=== PATIENT | male | born 1950 | race Caucasian/White ===

== ENCOUNTER 2024-01-25 15:05 | Inpatient (IN) | payer OTHER, SELFPAY ==
[2024-01-25 10:11] VITALS: BP 117/64
--- NOTE | 2024-01-25 11:14 | ED.GENMED ---
History of Present Illness
General
Chief Complaint: Skin Problem
Source: patient
Exam Limitations: none
Time Seen by Provider: 01/25/24 10:44
Travel History
Have you had any contact with someone who has COVID-19?: No
Do you have any symptoms of coronavirus? Fever > 100 degrees, chills, cough, shortness of breath, sore throat, loss of taste or smell, muscle aches, or headache?: No
History of Present Illness
History of Present Illness:
73-year-old male [id number] diabetic with history of peripheral arterial disease on Xarelto presents with worsening redness and swelling with pain to the left foot. He was seen by the manager inventory control last week and had 2 ingrown toenails
excised. He has been on For a total of 3 and half days 3 times a day. He denies fever. He denies chest pain or shortness of breath. He notes increased swelling redness and pain to the left foot and christiansen. No other complaints at this time
Phy Exam
Physical Exam
Physical Exam:
General: Well-appearing male no acute respiratory distress
HEENT: Normocephalic atraumatic neck is supple
Heart: Regular rate and rhythm no murmurs
Lungs: Clear to auscultation bilaterally no wheezing
Abdomen: Soft nontender nondistended no guarding or rebound normal bowel sounds
Skin: Erythema with excessive warmth noted from the dorsal left foot and distal left christiansen. This is slightly tender to the touch. The lateral edge of the large toenail has been recently excised. The medial edge of the left middle toenail has been
excised.
Vascular: Very faint dopplerable pulse to the dorsal aspect of the left foot the left foot is warm to
Course
Orders/Labs/Results
Orders:
Orders
01/25/24 11:06
CR Foot - Left Min 3 Views Urgent
Comment:
Reason For Exam: infection
01/25/24 12:12
Complete Blood Count/With Diff Urgent
Comprehensive Metabolic Panel Urgent
Lactic Acid Q4H
Comment: CANCEL 2nd LACTIC ACID IF 1st LACTIC ACID IS LESS THAN 2
Blood Culture Q30M
RAMON Source: Blood/Venous
Specimen Description:
Blood Culture Q30M
RAMON Source: Blood/Venous
Specimen Description:
01/25/24 12:21
Vancomycin [Vancocin] 1,500 mg 0.9% Sodium Chloride [Nss] 20 ml 0.9% Sodium Chloride 250 ml [Nss] 250 ml IV NOW
01/25/24 15:15
Lactic Acid Q4H
Comment: CANCEL 2nd LACTIC ACID IF 1st LACTIC ACID IS LESS THAN 2
Abnormal Lab Results
01/25/24
12:12
RBC 4.25 L 10^6/uL
(4.70-6.10)
Hgb 12.8 L g/dL
(13.0-18.0)
MCHC 32.6 L g/dL
(33.0-37.0)
RDW 15.8 H %
(11.5-14.5)
Immature Gran % 0.6 H %
(0-0.5)
Lymphocytes % 20.3 L %
(20.5-51.1)
BUN 25 H mg/dl
(9-20)
Glucose 141 H mg/dl
(70-99)
ALT 66 H U/L
(0-50)
01/25/24 12:12
01/25/24 12:12
Vital Signs
Initial and Last Documented VS:
Initial Vital Signs
Temp Pulse Resp BP Pulse Ox
98.1 F 94 18 117/64 96
01/25/24 10:11 01/25/24 10:11 01/25/24 10:11 01/25/24 10:11 01/25/24 10:11
Last Documented Vital Signs
Temp Pulse Resp BP Pulse Ox
98.1 F 94 18 117/64 96
01/25/24 10:11 01/25/24 10:11 01/25/24 10:11 01/25/24 10:11 01/25/24 10:11
MDM/Problems Addressed
Differential Diagnosis Includes:
Male with worsening redness and swelling to the left foot. Other medical conditions affecting today's care include diabetic state as well as peripheral arterial disease. Suspect minimally cellulitis. Will check x-ray to evaluate for
osteomyelitis. Patient feeling outpatient treatment with Keflex. Given risk factors he would require admission to hospital. Vancomycin ordered.
*Critical Care Note
Total Time (30-74mins, 75-104mins- exclusive of procedures): Not Applicable
Update Note
Update Note:
X-ray without acute findings. Will admit for cellulitis. Vancomycin ordered
ED Attending Note
-
Portions of this chart may have been created with voice recognition software.� Occasional wrong word or��sound alike� substitutions may have occurred due to the inherent limitations of voice recognition software.
Discharge Plan
Departure
Patient Disposition: Admit
Date of Disposition: 01/25/24
Time of Disposition: 14:02
Admit to: Med/Surg
Presentation/result/management discussed w/ accepting MD/DO: Hospitalist
Discharge Problem:
Cellulitis
Prescriptions:
No Action
atorvastatin 40 mg Tablet
40 mg PO DAILY
lisinopril 20 mg Tablet
20 mg PO DAILY
Hold Instructions: Resume on 05/30/23. Resume only after discussing with your primary care provider
metoprolol succinate 25 mg Tablet Extended Release 24 Hr
25 mg PO DAILY
Januvia 100 mg Tablet
100 mg PO DAILY
Jardiance 25 mg Tablet
25 mg PO DAILY
glipizide 5 mg Tablet
5 mg PO BID
isosorbide mononitrate 30 mg Tablet Extended Release 24 Hr
30 mg PO DAILY
aspirin 81 mg Tablet,Delayed Release (Dr/Ec)
81 mg PO DAILY
acetaminophen [Tylenol Extra Strength] 500 mg Tablet
1,000 mg PO Q6H PRN (Reason: mild pain)
cephalexin 500 mg Capsule
500 mg PO TID
Patient Comments:
01/25/2024, pt. filled this med. on 01/21/2024 and is instructed to take one capsule TID for 7 days. Pt.'s first dose was night (01/21/2024).
metformin 1,000 mg Tablet
1,000 mg PO BID
colchicine 0.6 mg Tablet
0.6 mg PO BID
Xarelto 20 mg Tablet
20 mg PO HS
Referrals:
Kim Greene PA [Family Provider] -
Interventions
Interventions:
*Risk Screen - Suicide Last Done: 01/25/24 11:58
*General Assessment Last Done: 01/25/24 11:58
*Neglect/Abuse Screening Last Done: 01/25/24 11:58
ED- Fall Risk Assessment Last Done: 01/25/24 11:58
*ED COVID-19 Vaccine History Last Done: 01/25/24 10:11
ED-Skin Assessment Last Done: 01/25/24 11:58
[2024-01-25 11:58] VITALS: BMI 32.7
[2024-01-25 12:35] LABS: % Eosinophils 3.4 % (0-6); % Immature Granulocytes 0.6 % (0-0.5); % Lymphocytes 20.3 % (20.5-51.1); % Monocytes 7.5 % (1.7-9.3); % Neutrophils 67.2 % (42.2-75.2); Absolute Basophils 0.1 10^3/uL (0-0.2); Absolute Eosinophils 0.2 10^3/uL (0-0.7); Absolute Lymphocytes 1.4 10^3/uL (1.2-3.4); Absolute Monocytes 0.5 10^3/uL (0.1-0.6); Absolute Neutrophils 4.5 10^3/uL (1.4-6.5); Hematocrit 39.3 % (39.0-52.0); Hemoglobin 12.8 g/dL (13.0-18.0); Mean Corp Hgb Conc. 32.6 g/dL (33.0-37.0); Mean Corpuscular Hgb 30.1 pg (27.0-31.0); Mean Corpuscular Volume 92.5 fL (80.0-94.0); Mean Platelet Volume 9.9 fL (7.4-10.4); Nucleated Red Blood Cells % 0 % (-); Platelet Count 244 10^3/uL (130-400); Red Blood Cell Count 4.25 10^6/uL (4.70-6.10); Red Cell Dist. Width 15.8 % (11.5-14.5); White Blood Cell Count 6.7 10^3/uL (4.8-10.8)
[2024-01-25 12:43] LABS: ALT (SGPT) 66 U/L (0-50); AST (SGOT) 48 U/L (17-59); Albumin 4.6 g/dl (3.5-5.0); Alkaline Phosphatase 71 U/L (38-126); Blood Urea Nitrogen 25 mg/dl (9-20); Calcium 9.4 mg/dl (8.4-10.2); Carbon Dioxide 27 mmol/L (22-30); Chloride 98 mmol/L (98-107); Estimated Creatinine Clearance 71 ml/min; Glucose 141 mg/dl (70-99); Potassium 4.5 mmol/L (3.5-5.1); Sodium 137 mmol/L (135-145); Total Bilirubin 0.6 mg/dl (0.2-1.3); Total Protein 7.8 g/dl (6.3-8.2); eGFR > 60.00
[2024-01-25] MEDS: VANCOCIN 300 MG IV (13:00)
[2024-01-25] MEDS: VANCOCIN 300 ML IV (13:00)
[2024-01-25 13:08] LABS: Lactic Acid 1.2 mmol/L (0.7-2.0)
--- NOTE | 2024-01-25 14:58 | HPS.HSE ---
Addendum entered and electronically signed by Slade Brown MD 01/25/24 15:55:
I saw and examined the patient.
The DISTRICT SUPERINTENDENT or PA's note was reviewed and I agree with the note.
Comment:
Patient 73 years old male with history of peripheral vascular disease, diabetes mellitus type 2, gout, CAD, hypertension, hyperlipidemia, presented to the hospital worsening erythema on his left foot for several days. Patient had ingrown toenails
and last panel cutter excised the area and he was placed on oral Keflex twice a day and colchicine. Patient foot has progressively getting worse with more erythema, tenderness, and warmth. No fluctuance or purulent discharge. No fevers or
chills. No chest pain or shortness of breath. In the ED, afebrile hemodynamically stable. WBC 6.7, lactate 1.2. He tells me he is seeing his vascular surgeon Dr. Rodriguez as outpatient and they are considering doing more vascular studies over the next
couple weeks to assess patency on his left lower extremity procedures. He was referred to hospitalist for further evaluation.
Physical exam:
General: Acutely ill
HEENT: Normocephalic, Atraumatic and Moist Mucous Membranes
Respiratory: Clear to Auscultation; Negative Wheezes, Rales or Rhonchi
Cardiac: Regular Rhythm and S1/S2
GI: Soft, Nontender and Nondistended
Musculoskeletal: Left foot dorsum erythema along with second and third toes with edema warmth and tenderness. Pedal pulses palpable. No Clubbing, No Cyanosis
Neuro: Awake, Alert and Oriented
Psych: Calm
A/P:
Left diabetic foot cellulitis in the setting of peripheral vascular disease--> IV antibiotics IV cefazolin, elevate lower extremity, monitor vascular status closely, follow-up cultures. Needs tighter blood sugar control. If worsening might
consider vascular evaluation and or changing antibiotics around. Will give further commendationsbased on his clinical course.
Original Note:
Family Physician
-
Family Physician: Kim Greene
Chief Complaint
-
Erythema left foot
History of Present Illness
Patient is a 73 y/o male with PMH of PAD, type II diabetes mellitus, and gout who presents with pain and swelling of the left foot. Patient saw his panel cutter this past who noticed that two of the patient's toes were infected. The
panel cutter corrected ingrown toenails of first and third left toes, prescribed Keflex, and told the patient to present to the ED if the redness from the infection continued to spread. Patient denies recent fever, chills, and sweats.
Medical History
Past Medical History
Past Medical History: Reports Other
Additional Past Medical History:
Coronary Artery Disease
Peripheral Arterial Disease
Diabetes Mellitus, Type II
Diabetic Neuropathy
Essential Hypertension
Hyperlipidemia
Gout
Past Surgical History: Reports Other
Additional Past Surgical History:
Left Superficial Femoral Artery to Anterior Tibial Artery Bypass
Left Lower Extremity Angioplasty
Coronary Artery Bypass Graft
AAA Repair
Left Shoulder Rotator Cuff Repair
Social History
Tobacco: Former Smoker (Quit 5 years ago)
Alcohol: Occasional (Admits to prior heavy alcohol use)
Family History
Family History: Not pertinent
Allergies / Home Medications
Allergies reflects when Allergies were last updated in [facility].
Home Medications with original date entered in [facility]
Allergy/Medication List:
Allergies
Allergy/AdvReac Type Severity Reaction Status Date / Time
No Known Allergies Allergy Verified 01/25/24 10:15
Home Medications
atorvastatin 40 mg tablet 40 mg PO DAILY High cholesterol 03/12/23
empagliflozin 25 mg tablet (Jardiance) 25 mg PO DAILY Diabetes 03/12/23
lisinopril 20 mg tablet 20 mg PO DAILY Blood pressure 03/12/23
metoprolol succinate 25 mg tablet,extended release 24 hr 25 mg PO DAILY Blood pressure 03/12/23
sitagliptin phosphate 100 mg tablet (Januvia) 100 mg PO DAILY Diabetes 03/12/23
glipizide 5 mg tablet 5 mg PO BID 09/09/23
acetaminophen 500 mg tablet (Tylenol Extra Strength) 1,000 mg PO Q6H PRN mild pain 01/25/24
aspirin 81 mg tablet,delayed release 81 mg PO DAILY 01/25/24
cephalexin 500 mg capsule 500 mg PO TID 01/25/24
colchicine 0.6 mg tablet 0.6 mg PO BID 01/25/24
isosorbide mononitrate 30 mg tablet,extended release 24 hr 30 mg PO DAILY 01/25/24
metformin 1,000 mg tablet 1,000 mg PO BID 01/25/24
rivaroxaban 20 mg tablet (Xarelto) 20 mg PO HS 01/25/24
Review of Systems
-
A 12 point ROS was completed and negative except as noted: Yes
Constitutional: Denies Fever or Chills
Skin: Reports See HPI
Physical Exam
Vital Signs
Vital Signs
Temp Pulse Resp BP Pulse Ox
98.1 F 94 18 117/64 96
01/25/24 10:11 01/25/24 10:11 01/25/24 10:11 01/25/24 10:11 01/25/24 10:11
Physical Exam
General: Comfortable and Conversant
HEENT: Anicteric and Moist mucous membranes
Respiratory: Clear and Non Labored Respirations
Cardiac: S1/S2, Regular Rhythm and Other (Intact pedal pulse)
GI: Soft, Non Tender and Other (Protuberant)
Rectal: Deferred by Provider
Musculoskeletal: No Clubbing and No Cyanosis
Skin: Other (Mild erythema left foot)
Neuro: Awake, Alert, Oriented and Nonfocal/grossly intact
Psych: Calm
Laboratory Results
-
01/25/24 12:12
01/25/24 12:12
Laboratory Results
Lactic Acid 1.2 mmol/L (0.7-2.0) 01/25/24 12:12
Total Bilirubin 0.6 mg/dl (0.2-1.3) 01/25/24 12:12
AST 48 U/L (17-59) 01/25/24 12:12
ALT 66 U/L (0-50) H 01/25/24 12:12
Alkaline Phosphatase 71 U/L (38-126) 01/25/24 12:12
Data Reviewed
-
Diagnostic Radiology: Report Reviewed by me
Lab Data: Labs Reviewed by me
Impression/Plan
-
Left Foot Cellulitis
-Continue Ancef (No prior history of MRSA)
-Await blood culture
ASCVD s/p CABG and LLE Bypass/Angioplasty
-Continue aspirin and Xarelto
-Continue isosorbide mononitrate
Essential Hypertension
-Continue lisinopril and metoprolol
Hyperlipidemia
-Continue atorvastatin
Diabetes Mellitus, Type II
-Check HgbA1c
-Continue Metformin, Glipizide, Januvia and Jardiance
-Monitor sugars and continue coverage insulin
Gout
-Continue colchicine
DVT proph: Xarelto
Code Status: Full Code
[2024-01-25 16:59] VITALS: BP 133/68
[2024-01-25 19:15] VITALS: BP 144/81
[2024-01-25 19:17] VITALS: BMI 32.1
[2024-01-25 19:53] LABS: Glucose - Point of Care 133 mg/dl (70-99)
[2024-01-25] MEDS: XARELTO 20 MG PO (20:18)
[2024-01-25] MEDS: GLUCOPHAGE 1000 MG PO ×2 (20:18)
[2024-01-25] MEDS: TYLENOL 1000 MG PO (20:18)
[2024-01-25] MEDS: COLCHICINE 0.599999999999999978 MG PO (20:19)
[2024-01-25] MEDS: NOVOLOG FLEXPEN-LOW RESISTANCE SC (20:19)
[2024-01-25] MEDS: GLUCOTROL 5 MG PO (20:19)
[2024-01-25] MEDS: ANCEF 10 IV (20:19)
--- NOTE | 2024-01-25 20:20 | PTCARENOTE ---
Received pt from ED via stretcher. Pt ambulated to bed with stand by assist. AAOx3, VSS, complains of 5/10 pain in left foot with occasional 10/10 sharp 'zinging' pain through left foot to left calf. Oriented pt to room, call felix within reach.
--- NOTE | 2024-01-25 20:50 | PTCARENOTE ---
Vascular check completed. Difficulty finding left dorsalis pedis pulse and left posterior tib pulses with doppler; found and marked on left foot. Patient has good sensation, states slightly decreased than RLE. Can wiggles toes, slight dusky color of
left toes with >2 second cap refill. Plan of care ongoing
[2024-01-25 21:18] LABS: Glucose - Point of Care 175 mg/dl (70-99)
[2024-01-25 23:31] VITALS: BP 132/66
[2024-01-26] MEDS: ANCEF 10 IV ×3 (04:41→20:41)
[2024-01-26 05:18] LABS: Hematocrit 40.5 % (39.0-52.0); Mean Corp Hgb Conc. 32.1 g/dL (33.0-37.0); Mean Corpuscular Volume 93.3 fL (80.0-94.0); Mean Platelet Volume 9.6 fL (7.4-10.4); Platelet Count 237 10^3/uL (130-400); Red Blood Cell Count 4.34 10^6/uL (4.70-6.10); Red Cell Dist. Width 15.7 % (11.5-14.5); White Blood Cell Count 6.3 10^3/uL (4.8-10.8)
[2024-01-26 05:48] LABS: Blood Urea Nitrogen 24 mg/dl (9-20); Calcium 9.2 mg/dl (8.4-10.2); Carbon Dioxide 26 mmol/L (22-30); Chloride 102 mmol/L (98-107); Estimated Creatinine Clearance 86 ml/min; Glucose 136 mg/dl (70-99); Potassium 4.3 mmol/L (3.5-5.1); Sodium 139 mmol/L (135-145); eGFR > 60.00
[2024-01-26 06:00] VITALS: BMI 31.8
[2024-01-26 07:29] LABS: Glucose - Point of Care 163 mg/dl (70-99)
[2024-01-26 07:42] VITALS: BP 138/74
--- NOTE | 2024-01-26 07:49 | W.PN.HOSP.TC ---
Today's Communication/Plan
-
Continue IV antibiotics. Vascular surgery eval.
Assessment / Plan
Assessment / Plan
Physical exam:
General: Acutely ill
HEENT: Normocephalic, Atraumatic and Moist Mucous Membranes
Respiratory: Clear to Auscultation; Negative Wheezes, Rales or Rhonchi
Cardiac: Regular Rhythm and S1/S2
GI: Soft, Nontender and Nondistended
Musculoskeletal: Left foot dorsum erythema along with second and third toes with edema warmth and tenderness.� Pedal pulses difficult to palpate today.� No Clubbing, No Cyanosis
Neuro: Awake, Alert and Oriented
Psych: Calm
A/P:
Left Foot Cellulitis:
-Continue IV cefazolin.
-Monitor erythema
-WBC 6.3
-Blood cultures no growth
-Vascular surgery consult
ASCVD s/p CABG and LLE Bypass/Angioplasty/concerns for vascular issues contributing to his ability to heal cellulitis:
-Continue aspirin and Xarelto
-Vascular surgery consulted and ordered vascular studies today
Essential Hypertension
-Continue lisinopril, Imdur, and metoprolol
-Monitor blood pressure and adjust medications accordingly
Hyperlipidemia
-Continue atorvastatin
Diabetes Mellitus, Type II
-Check HgbA1c 8.1
-Continue Metformin, Glipizide, Januvia and Jardiance
-Monitor sugars and continue coverage insulin
Gout with recent flare
-Continue colchicine
DVT proph: Xarelto
Code Status: Full Code
Anticipated Discharge: 24 - 48 hours
Subjective/Interval History
-
Date of Service: January 26, 2024
Patient feels better overall, erythema of the left foot is receding. No chest pain or shortness of breath. No nausea vomiting or diarrhea. Afebrile
Objective Data
-
Labs:
Laboratory Results
01/26/24
04:58
WBC 6.3
Hgb 13.0
Hct 40.5
Plt Count 237
Sodium 139
Potassium 4.3
Chloride 102
Carbon Dioxide 26
BUN 24 H
Creatinine 0.9
Glucose 136 H
Calcium 9.2
Vital Signs:
Vital Signs
Temp Pulse Resp BP Pulse Ox
98.1 F 86 18 132/66 95
01/25/24 23:31 01/25/24 23:31 01/25/24 23:31 01/25/24 23:31 01/25/24 23:31
I&O
01/25/24 01/26/24 01/27/24
06:59 06:59 06:59
Intake Total 480 / 480
Output Total 325 / 325
Balance 155 / 155
Review of Systems
-
All other systems: Reviewed and negative
[2024-01-26] MEDS: TYLENOL 1000 MG PO ×2 (08:26→20:41)
[2024-01-26] MEDS: NOVOLOG FLEXPEN-LOW RESISTANCE 1 UNITS SC (08:27)
[2024-01-26] MEDS: GLUCOPHAGE 1000 MG PO ×2 (08:28→17:15)
[2024-01-26] MEDS: IMDUR (EXTENDED RELEASE) 30 MG PO (08:29)
[2024-01-26] MEDS: COLCHICINE 0.599999999999999978 MG PO ×2 (08:29→20:41)
[2024-01-26] MEDS: TOPROL XL 25 MG PO (08:29)
[2024-01-26] MEDS: JARDIANCE 25 MG PO (08:30)
[2024-01-26] MEDS: GLUCOTROL 5 MG PO ×2 (08:30→17:15)
[2024-01-26] MEDS: ZESTRIL 20 MG PO (08:30)
[2024-01-26] MEDS: LIPITOR 40 MG PO (08:30)
[2024-01-26] MEDS: JANUVIA 100 MG PO (08:30)
[2024-01-26] MEDS: ASPIR LOW (ENTERIC COATED) 81 MG PO (08:31)
[2024-01-26 08:56] LABS: Glycohemoglobin (HgbA1c) 8.1 % (4.0-5.6)
--- NOTE | 2024-01-26 11:30 | CON.VAS ---
Addendum entered and electronically signed by Frankie Monson III, MD 01/26/24 17:33:
This patient was seen and examined with VICKEY Lange. I agree with the history and physical exam as well as the assessment and plan. I have the following additions:
History of left SFA to AT bypass with arm vein
Endovascular intervention for bypass graft stenosis and AT outflow stenosis in August 2023
Returns today with pain and erythema in his left foot
Reports that perhaps 2 weeks ago ( thinks longer) he stopped feeling the graft pulse in his left thigh
Grossly intact motor function to the left foot.
No Doppler signals audible in the left foot
Left lower extremity bypass pulse is nonpalpable
Appearance of foot and toes as seen in the images.
Unfortunately I think this is the end of the line for Michele's left leg. Attempts at reestablishing patency of the left lower extremity bypass are very unlikely to result in durable outcome long-term even if reestablishing patency is successful.
Options include pain medication and observation versus major amputation of the left lower extremity. They would like some time to think about their options. Will follow along peripherally.
Signed:
Frankie Monson III, MD
[facility] Vascular Surgery
[phone] (lxge)
Original Note:
Consultation
Consultation Request
Date/Time Consultation Performed: 01/26/24 1030
Requesting Provider: Hospitalist
Performing Provider: Nichole Banuelos NP-C for Frankie Monson III, MD
Reason for Consultation: Left foot wound
Medical History
-
Chief Complaint: Left Foot wound
History of Present Illness:
This is a 73 year old male patient with significant past medical history of peripheral vascular disease, diabetes mellitus type 2, gout, CAD, hypertension, and hyperlipidemia who presented to [facility] on 01/25/24 reporting worsening pain
and erythema to left foot following fruit preserver clipping ingrown toenails on 01/21/24. Patient endorses experiencing ingrown toenails and last fruit preserver excised the area and he was placed on oral Keflex twice a day and colchicine for gout.
Since this appointment his left foot digits 1,3, and 4 have progressively worsened with erythema, tenderness, and warmth. No fluctuance or purulent discharge. No fevers or chills. No chest pain or shortness of breath. In addition to recent
wounds following podiatry clipping he also endorses roughly 2 weeks ago that he could suddenly no longer feel a pulse at his bypass graft. He declined to notify any physician or our vascular surgery office at that time of the change in his bypass.
He notes his claudication symptoms have also worsened a little bit, but he cannot be certain as his gout pain also severely limits his walking. worsened.
Vascular Surgery History:
03/18/23- Bilateral lower extremity diagnostic arteriogram - Aldair Rodriguez MD
04/09/23- Left superficial femoral artery to anterior tibial artery bypass with nonreversed left upper extremity cephalic vein conduit with exclusion of popliteal artery aneurysm - Aldair Rodriguez MD
05/16/23- Exploration of the left groin and left lower leg- Kailey Mcghee MD
09/09/23- Left lower extremity arteriogram, balloon angioplasty of bypass graft stenoses and outflow anterior tibial artery
Past Medical History
Past Medical History: CAD, HTN, NIDDM and Other (PAD, HLD, Gout )
Past Surgical History: Cardiac (CABG x3 (2020), aortic repair ), Orthopedic (Left shoulder rotator cuff repair ) and Other (sinus surgery, see vascular history in HPI)
Social History
Tobacco: Former Smoker
Alcohol: Occasional
Drug: None
Allergies / Home Medications
Allergy/AdvReac Type Severity Reaction Status Date / Time
No Known Allergies Allergy Verified 01/25/24 10:15
Medication Instructions Recorded Confirmed Type
atorvastatin 40 mg tablet 40 mg PO DAILY High cholesterol 03/12/23 01/25/24 History
empagliflozin 25 mg tablet 25 mg PO DAILY Diabetes 03/12/23 01/25/24 History
(Jardiance)
lisinopril 20 mg tablet 20 mg PO DAILY Blood pressure 03/12/23 01/25/24 History
metoprolol succinate 25 mg 25 mg PO DAILY Blood pressure 03/12/23 01/25/24 History
tablet,extended release 24 hr
sitagliptin phosphate 100 mg 100 mg PO DAILY Diabetes 03/12/23 01/25/24 History
tablet (Januvia)
glipizide 5 mg tablet 5 mg PO BID diabetes 09/09/23 01/25/24 History
acetaminophen 500 mg tablet 1,000 mg PO Q6H PRN mild pain 01/25/24 01/25/24 History
(Tylenol Extra Strength)
aspirin 81 mg tablet,delayed 81 mg PO DAILY Blood Clot 01/25/24 01/25/24 History
release Prevention/Tx
cephalexin 500 mg capsule 500 mg PO TID Infection 01/25/24 01/25/24 History
colchicine 0.6 mg tablet 0.6 mg PO BID gout 01/25/24 01/25/24 History
isosorbide mononitrate 30 mg 30 mg PO DAILY Heart 01/25/24 01/25/24 History
tablet,extended release 24 hr Disease/Condition
metformin 1,000 mg tablet 1,000 mg PO BID diabetes 01/25/24 01/25/24 History
rivaroxaban 20 mg tablet (Xarelto) 20 mg PO HS Blood Clot 01/25/24 01/25/24 History
Prevention/Tx
Review of Systems
-
History Source: Patient
Constitutional: Reports No Symptoms
EENT: Reports No Symptoms
Respiratory: Reports No Symptoms
Cardiac: Reports No Symptoms
Vascular: Reports Leg Pain / Claudication
Abdomen/GI: Reports No Symptoms
: Reports No Symptoms
Musculoskeletal: Reports No Symptoms
Skin: Reports Other (pain/wounds/reddness to left foot)
Neurological: Reports No Symptoms
Endocrine: Reports No Symptoms
Physical Exam
Vital Signs
Temp Pulse Resp BP Pulse Ox
98.6 F 86 18 138/74 95
01/26/24 07:42 01/26/24 07:42 01/26/24 07:42 01/26/24 07:42 01/26/24 07:42
Lab Results
01/26/24 04:58
01/26/24 04:58
Physical Exam
General: No Apparent Distress and Comfortable
HEENT: Normocephalic, Anicteric and Atraumatic
Respiratory: Non Labored Respirations
Cardiac: Negative JVD
GI: Soft, Non Tender and Non Distended
Musculoskeletal: No Edema
Skin: Warm and Other (dusky color with erythema and mild edmea at left foot digits 1,3,and 4, cap refill sluggish, please refer to picture in HPI)
Neuro: AO x 3
Pulses: Bilateral Femoral: +1, Left Dorsalis Pedis: Doppler (Absent), Right Dorsalis Pedis: Doppler and Left Posterior Tibial: Doppler (Absent, left graft without pulse)
Assessment / Plan
-
Assessment: 73 year old male admitted for cellulitis, wound to left foot, known PAD
Plan:
Concern for left lower extremity graft occlusion as cannot palpate graft pulse and DP/PT doppler signal absent, will obtain arterial US and JUANCARLOS/TBI
Surgical plan following results of non-invasive imaging
[2024-01-26 11:34] LABS: Glucose - Point of Care 145 mg/dl (70-99)
[2024-01-26] MEDS: NOVOLOG FLEXPEN-LOW RESISTANCE SC ×2 (12:33→17:11)
[2024-01-26 15:39] VITALS: BP 122/64
[2024-01-26 17:07] LABS: Glucose - Point of Care 119 mg/dl (70-99)
--- NOTE | 2024-01-26 17:16 | CM ---
Alert awake oriented patient who lives with his who lives in a 1 story home with 1 step to enter and bed and bathroom on first floor. He is independent in driving and in all activities of daily living.He was offered VN and he and
said may by VN and Palliative care They are unsure.
[facility] hx /No SNF history
Pharmacy [facility]
PCP DR Greene
PLAN Home with possible VN and Palliative care.
[2024-01-26] MEDS: XARELTO 20 MG PO (20:41)
[2024-01-26 21:48] LABS: Glucose - Point of Care 124 mg/dl (70-99)
[2024-01-26 23:24] VITALS: BP 129/78
[2024-01-27] MEDS: ANCEF 10 IV ×3 (03:01→20:05)
[2024-01-27] MEDS: TYLENOL 1000 MG PO ×3 (03:09→18:00)
[2024-01-27 06:00] VITALS: BMI 31.7
[2024-01-27 07:12] LABS: Glucose - Point of Care 147 mg/dl (70-99)
[2024-01-27 07:15] VITALS: BP 128/71
[2024-01-27 07:19] LABS: % Basophils 1.2 % (0-2); % Eosinophils 4.3 % (0-6); % Immature Granulocytes 0.4 % (0-0.5); % Lymphocytes 25.3 % (20.5-51.1); % Monocytes 10.4 % (1.7-9.3); % Neutrophils 58.4 % (42.2-75.2); Absolute Basophils 0.1 10^3/uL (0-0.2); Absolute Eosinophils 0.3 10^3/uL (0-0.7); Absolute Lymphocytes 1.8 10^3/uL (1.2-3.4); Absolute Monocytes 0.8 10^3/uL (0.1-0.6); Absolute Neutrophils 4.2 10^3/uL (1.4-6.5); Hematocrit 39.4 % (39.0-52.0); Hemoglobin 12.8 g/dL (13.0-18.0); Mean Corp Hgb Conc. 32.5 g/dL (33.0-37.0); Mean Corpuscular Hgb 29.8 pg (27.0-31.0); Mean Corpuscular Volume 91.6 fL (80.0-94.0); Mean Platelet Volume 9.3 fL (7.4-10.4); Nucleated Red Blood Cells % 0 % (-); Platelet Count 248 10^3/uL (130-400); Red Cell Dist. Width 15.8 % (11.5-14.5); White Blood Cell Count 7.2 10^3/uL (4.8-10.8)
[2024-01-27] MEDS: NOVOLOG FLEXPEN-LOW RESISTANCE SC ×2 (07:27→16:46)
[2024-01-27] MEDS: GLUCOTROL 5 MG PO ×2 (07:33→17:16)
[2024-01-27] MEDS: ASPIR LOW (ENTERIC COATED) 81 MG PO (07:33)
[2024-01-27] MEDS: LIPITOR 40 MG PO (07:34)
[2024-01-27] MEDS: JANUVIA 100 MG PO (07:34)
[2024-01-27] MEDS: IMDUR (EXTENDED RELEASE) 30 MG PO (07:34)
[2024-01-27] MEDS: COLCHICINE 0.599999999999999978 MG PO ×2 (07:34→20:05)
[2024-01-27] MEDS: ZESTRIL 20 MG PO (07:34)
[2024-01-27] MEDS: GLUCOPHAGE 1000 MG PO ×2 (07:35→17:16)
[2024-01-27] MEDS: TOPROL XL 25 MG PO (07:35)
[2024-01-27] MEDS: JARDIANCE 25 MG PO (07:35)
[2024-01-27 07:43] LABS: Blood Urea Nitrogen 30 mg/dl (9-20); Carbon Dioxide 23 mmol/L (22-30); Chloride 103 mmol/L (98-107); Estimated Creatinine Clearance 64 ml/min; Glucose 140 mg/dl (70-99); Potassium 4.6 mmol/L (3.5-5.1); Sodium 137 mmol/L (135-145); eGFR > 60.00
--- NOTE | 2024-01-27 09:37 | W.PN.VS ---
Addendum entered and electronically signed by Aldair Rodriguez MD 01/27/24 11:09:
Seen and examined with [facility] CHIEF. Agree with findings as noted below. No new complaints. Exam is stable. Discussed again with patient likely no revascularization options here. Will likely require amputation at some point. No emergent need. Patient
considering palliative care. Certainly does not wish for anything to be done at this time. Likely can go home from my standpoint and we can see him in the office. Then consider elective amputation versus amputation only if worsening of
wound/sepsis.
Original Note:
Today's Communication / Plan
-
Seen and assessed with Dr Rodriguez
Assessment/Plan
-
73-year-old male with nonhealing toe wounds, thrombosed bypass graft
Plan:
-outpatient follow up
Subjective Data
-
Date of Service: January 27, 2024
Patient seen at bedside this a.m. with Dr. Rodriguez. Patient offers no complaints at this time, no events overnight
Objective Data
-
Vital Signs
Temp Pulse Resp BP Pulse Ox
97.7 F 75 20 128/71 94
01/27/24 07:15 01/27/24 07:15 01/27/24 07:15 01/27/24 07:15 01/27/24 07:15
Intake and Output
01/26/24 01/27/24 01/28/24
06:59 06:59 06:59
Intake Total 480 / 480 1140 / 1140
Output Total 325 / 325 700 / 700
Balance 155 / 155 440 / 440
Intake:
Oral fluids 480 / 480 1140 / 1140
Output:
Urine, Voided 325 / 325 700 / 700
Other:
Number of approximated MODERATE 3
amounts of urine
Lab Results
01/27/24 06:43
01/27/24 06:43
Calcium 9.0 mg/dl (8.4-10.2) 01/27/24 06:43
Total Bilirubin 0.6 mg/dl (0.2-1.3) 01/25/24 12:12
AST 48 U/L (17-59) 01/25/24 12:12
ALT 66 U/L (0-50) H 01/25/24 12:12
Alkaline Phosphatase 71 U/L (38-126) 01/25/24 12:12
Total Protein 7.8 g/dl (6.3-8.2) 01/25/24 12:12
Albumin 4.6 g/dl (3.5-5.0) 01/25/24 12:12
Physical Exam
-
Resting bed comfortably
No dyspnea
ABD rotund and soft
Wounds unchanged
--- NOTE | 2024-01-27 11:13 | W.PN.HOSP.TC ---
Today's Communication/Plan
-
pain control
abx
start dispo
Assessment / Plan
Assessment / Plan
Physical exam:
General: Acutely ill
HEENT: Normocephalic, Atraumatic and Moist Mucous Membranes
Respiratory: Clear to Auscultation; Negative Wheezes, Rales or Rhonchi
Cardiac: Regular Rhythm and S1/S2
GI: Soft, Nontender and Nondistended
Musculoskeletal: Left foot dorsum erythema along with second and third toes with edema warmth and tenderness.� Pedal pulses difficult to palpate today.� No Clubbing, No Cyanosis
Neuro: Awake, Alert and Oriented
Psych: Calm
A/P:
Left Foot Cellulitis:
-Continue IV cefazolin.
-Monitor erythema
-WBC 6.3
-Blood cultures no growth
-Vascular surgery consult
ASCVD s/p CABG and LLE Bypass/Angioplasty/thrombosed bypass graft contributing to his ability to heal cellulitis:
-Continue aspirin and Xarelto
-Vascular surgery consulted-recommending amputation. Per pt planning for palliative care then eventually as OP if with worsening wound/pain might consider amputation.
-Surgery correspondence noted
Essential Hypertension
-Continue lisinopril, Imdur, and metoprolol
-Monitor blood pressure and adjust medications accordingly
Hyperlipidemia
-Continue atorvastatin
Diabetes Mellitus, Type II
-Check HgbA1c 8.1
-Continue Metformin, Glipizide, Januvia and Jardiance
-Monitor sugars and continue coverage insulin
Gout with recent flare
-Continue colchicine
DVT proph: Xarelto
Code Status: Full Code
Anticipated Discharge: Within 24 hours
Subjective/Interval History
-
Date of Service: January 27, 2024
states of intermittent pain LLE
states talked to vascular earlier today
Objective Data
-
Labs:
Laboratory Results
01/27/24
06:43
WBC 7.2
Hgb 12.8 L
Hct 39.4
Plt Count 248
Sodium 137
Potassium 4.6
Chloride 103
Carbon Dioxide 23
BUN 30 H
Creatinine 1.2
Glucose 140 H
Calcium 9.0
Vital Signs:
Vital Signs
Temp Pulse Resp BP Pulse Ox
97.7 F 75 20 128/71 94
01/27/24 07:15 01/27/24 07:15 01/27/24 07:15 01/27/24 07:15 01/27/24 08:00
I&O
01/26/24 01/27/24 01/28/24
06:59 06:59 06:59
Intake Total 480 / 480 1140 / 1140
Output Total 325 / 325 700 / 700
Balance 155 / 155 440 / 440
[2024-01-27 11:47] LABS: Glucose - Point of Care 163 mg/dl (70-99)
[2024-01-27] MEDS: NOVOLOG FLEXPEN-LOW RESISTANCE 1 UNITS SC (12:11)
[2024-01-27 15:15] VITALS: BP 137/65
--- NOTE | 2024-01-27 16:24 | CM ---
Spoke with patient and in room.
Pt and requested [facility] and Palliative consult(referral placed). Nicole aware form [facility] .
will drive him home.
IMM reviewed signed on chart.
PLAN: Home with palliative and [facility]
[2024-01-27 16:38] LABS: Glucose - Point of Care 137 mg/dl (70-99)
[2024-01-27] MEDS: XARELTO 20 MG PO (20:04)
[2024-01-27 21:18] LABS: Glucose - Point of Care 123 mg/dl (70-99)
[2024-01-27 23:32] VITALS: BP 122/71
[2024-01-28] MEDS: ANCEF 10 IV ×2 (04:35→11:12)
[2024-01-28 06:00] VITALS: BMI 31.5
[2024-01-28 07:26] LABS: Glucose - Point of Care 150 mg/dl (70-99)
[2024-01-28 07:35] VITALS: BP 118/71
[2024-01-28] MEDS: GLUCOTROL 5 MG PO (07:47)
[2024-01-28] MEDS: ZESTRIL PO (07:47)
[2024-01-28] MEDS: TYLENOL 1000 MG PO (07:48)
[2024-01-28] MEDS: GLUCOPHAGE 1000 MG PO (07:48)
[2024-01-28] MEDS: NOVOLOG FLEXPEN-LOW RESISTANCE 1 UNITS SC (07:49)
[2024-01-28] MEDS: COLCHICINE 0.599999999999999978 MG PO (07:50)
[2024-01-28] MEDS: IMDUR (EXTENDED RELEASE) 30 MG PO (07:50)
[2024-01-28] MEDS: ASPIR LOW (ENTERIC COATED) 81 MG PO (07:50)
[2024-01-28] MEDS: JANUVIA 100 MG PO (07:51)
[2024-01-28] MEDS: LIPITOR 40 MG PO (07:51)
[2024-01-28] MEDS: TOPROL XL 25 MG PO (07:51)
[2024-01-28] MEDS: JARDIANCE 25 MG PO (07:52)
--- NOTE | 2024-01-28 11:11 | W.PN.HOSP.TC ---
Today's Communication/Plan
-
Outpatient vascular follow-up
Palliative care
Assessment / Plan
Assessment / Plan
Physical exam:
General: Acutely ill
HEENT: Normocephalic, Atraumatic and Moist Mucous Membranes
Respiratory: Clear to Auscultation; Negative Wheezes, Rales or Rhonchi
Cardiac: Regular Rhythm and S1/S2
GI: Soft, Nontender and Nondistended
Musculoskeletal: Left foot dorsum erythema along with second and third toes with edema warmth and tenderness.� Pedal pulses difficult to palpate today.� No Clubbing, No Cyanosis
Neuro: Awake, Alert and Oriented
Psych: Calm
A/P:
Left Foot Cellulitis:
-Continue IV cefazolin. And will switch to p.o. antibiotics on discharge. Remains afebrile.
-Monitor erythema
-WBC 6.3
-Blood cultures no growth
-Vascular surgery consult
ASCVD s/p CABG and LLE Bypass/Angioplasty/thrombosed bypass graft contributing to his ability to heal cellulitis:
-Continue aspirin and Xarelto
-Vascular surgery consulted-recommending amputation. Per pt planning for palliative care then eventually as OP if with worsening wound/pain might consider amputation.
-Surgery correspondence noted
Essential Hypertension
-Continue lisinopril, Imdur, and metoprolol
-Monitor blood pressure and adjust medications accordingly
Hyperlipidemia
-Continue atorvastatin
Diabetes Mellitus, Type II
-Check HgbA1c 8.1
-Continue Metformin, Glipizide, Januvia and Jardiance
-Monitor sugars and continue coverage insulin
Gout with recent flare
-Continue colchicine
DVT proph: Xarelto
Code Status: Full Code
More than 30 minutes spent in discharge including
Final examination of the patient
Summarizing hospital stay
Instructions for continuing care to all relevant caregivers
Preparation of discharge records, prescriptions, and referral forms
Total time spent (in minutes): 45
Anticipated Discharge: Today
Subjective/Interval History
-
Date of Service: January 28, 2024
Denies pain
States he wants to follow-up with palliative care and will follow-up with vascular surgery as outpatient
Objective Data
-
Vital Signs:
Vital Signs
Temp Pulse Resp BP Pulse Ox
98.0 F 81 14 118/71 95
01/28/24 07:35 01/28/24 07:47 01/28/24 07:35 01/28/24 07:47 01/28/24 08:00
I&O
01/27/24 01/28/24 01/29/24
06:59 06:59 06:59
Intake Total 1140 / 1140 900 / 900
Output Total 700 / 700 450 / 450
Balance 440 / 440 450 / 450
--- NOTE | 2024-01-28 11:13 | W.DCSUMMARY ---
Discharge Summary
Discharge Data
Date of Admission: 01/25/24
Date of Discharge: 01/28/24
-
Pending Results: No
Hospital Course
73 male past medical history of diabetes, gout, hyperlipidemia, hypertension, CAD status post CABG, lower extremity bypass who is presenting with cellulitis and pain in the left leg. Concern of vascular disease and vascular was consulted. Vascular
surgery evaluated patient stated patient with thrombosed graft and no further acute surgical intervention can be performed except for amputation. Patient erythema improved with antibiotics. Patient stated he would like to think about it would like
to go on palliative care measures and follow-up with vascular surgery as outpatient. Patient has appointment scheduled as outpatient would like to discuss further with Dr. Rodriguez as outpatient.
Discharge Plan
-
Patient Disposition: Home with Home Care
Discharge Diagnosis/Procedures: Left leg cellulitis in setting of thrombosed bypass graft
Condition: Fair
Diet: As tolerated
Activity: With assistance and As tolerated
Driving Restrictions: As prior to admission
Other Services: [facility]
Referrals:
Mattie Freed PA-C [Specified Professional Personl] - 02/09/24 9:30 am (Vascular follow up)
Kim Greene PA [Family Provider] - in less than 1 week
Bernadine Martinez MD [Active] - (Palliative care)
Prescriptions:
New
cefadroxil 500 mg capsule
500 mg PO Q12H Qty: 10 0RF
Continued
atorvastatin 40 mg Tablet
40 mg PO DAILY
lisinopril 20 mg Tablet
20 mg PO DAILY
Hold Instructions: Resume on 05/30/23. Resume only after discussing with your primary care provider
metoprolol succinate 25 mg Tablet Extended Release 24 Hr
25 mg PO DAILY
Januvia 100 mg Tablet
100 mg PO DAILY
Jardiance 25 mg Tablet
25 mg PO DAILY
glipizide 5 mg Tablet
5 mg PO BID
isosorbide mononitrate 30 mg Tablet Extended Release 24 Hr
30 mg PO DAILY
aspirin 81 mg Tablet,Delayed Release (Dr/Ec)
81 mg PO DAILY
acetaminophen [Tylenol Extra Strength] 500 mg Tablet
1,000 mg PO Q6H PRN (Reason: mild pain)
metformin 1,000 mg Tablet
1,000 mg PO BID
colchicine 0.6 mg Tablet
0.6 mg PO BID
Xarelto 20 mg Tablet
20 mg PO HS
Discontinued
cephalexin 500 mg Capsule
500 mg PO TID
Patient Comments:
01/25/2024, pt. filled this med. on 01/21/2024 and is instructed to take one capsule TID for 7 days. Pt.'s first dose was night (01/21/2024).
Discharge Orders:
Discharge Patient (As Directed); Ordered 01/28/24
Ordered By: Jesu Ash
Discharge Date and Time
Discharge Date/Time: 01/28/24 11:34
--- NOTE | 2024-01-28 11:47 | VNURNOTE ---
Home Health Liaison met with patient at 1115 to discuss [facility] nurse/therapy, visits, schedule and homebound status. Patient is agreeable and understands that visits at home will be 2-3 x per week to assess and teach medical management.
[facility] brochure provided with contact information. Patient is aware that [facility] will contact him for start of care in 1-2 days after discharge from .
[facility] referral completed in [facility].
--- NOTE | 2024-01-28 12:53 | CM ---
Addendum entered by Helen Lubin RN 01/28/24 13:04:
Spoke with Cecily at Palliative care she requested dc summary to be faxed to [phone] . Gear Tester said she would.
Original Note:
MD entered order for discharge.
Pt and requested [facility] and Palliative consult(referral placed). Nicole aware form [facility] .
will drive him home.
PLAN: Home with palliative and [facility]
== END 2024-01-28 11:34 | disposition home health service (06) | DRG 603 ==
LOC: 4 EAST ACU 15:05
PROVIDERS: Physician Assistant; Physician Assistant Medical; ADMITTING PHYSICIAN Hospitalist; ATTENDING PHYSICIAN Hospitalist; EMERGENCY PHYSICIAN Emergency Medicine; FAMILY PHYSICIAN Physician Assistant; OTHER PHYSICIAN Nurse Practitioner
DX: L03.116 Cellulitis of left lower limb (principal); T82.868A Thrombosis due to vascular prosthetic devices, implants and grafts, initial encounter; E11.51 Type 2 diabetes mellitus with diabetic peripheral angiopathy without gangrene; E11.40 Type 2 diabetes mellitus with diabetic neuropathy, unspecified; E78.00 Pure hypercholesterolemia, unspecified; I10 Essential (primary) hypertension; I25.10 Atherosclerotic heart disease of native coronary artery without angina pectoris; M10.9 Gout, unspecified; Y82.8 Other medical devices associated with adverse incidents; Z79.82 Long term (current) use of aspirin; Z79.84 Long term (current) use of oral hypoglycemic drugs; Z79.01 Long term (current) use of anticoagulants
CPT/HCPCS: 73630; 80048; 80053; 82962; 83036; 83605; 85025; 85027; 87040; 93922; 93925; 96365; 99285

== ENCOUNTER 2024-03-07 09:56 | Inpatient (IN) | payer OTHER, SELFPAY ==
[2024-03-07] VITALS (18 sets, daily range): BP systolic 117–158; BP diastolic 61–135; BMI 31.3
[2024-03-07 10:31] LABS: Hematocrit 37.6 % (39.0-52.0); Hemoglobin 12.2 g/dL (13.0-18.0); Mean Corp Hgb Conc. 32.4 g/dL (33.0-37.0); Mean Corpuscular Hgb 29.4 pg (27.0-31.0); Mean Corpuscular Volume 90.6 fL (80.0-94.0); Platelet Count 326 10^3/uL (130-400); Red Blood Cell Count 4.15 10^6/uL (4.70-6.10); Red Cell Dist. Width 15.5 % (11.5-14.5)
[2024-03-07 10:43] LABS: INR 1.09; PT 13.9 Sec (11.4-14.6)
[2024-03-07 10:44] LABS: APTT 41.1 Sec (23.4-35.0); Blood Urea Nitrogen 34 mg/dl (9-20); Calcium 9.5 mg/dl (8.4-10.2); Carbon Dioxide 24 mmol/L (22-30); Chloride 101 mmol/L (98-107); Estimated Creatinine Clearance 65 ml/min; Glucose 160 mg/dl (70-99); Potassium 4.9 mmol/L (3.5-5.1); Sodium 135 mmol/L (135-145); eGFR > 60.00
[2024-03-07] MEDS: BACTROBAN NASAL 1 GRAM NASAL (10:58)
[2024-03-07] MEDS: PERIDEX 0.12% ORAL RINSE 15 ML PO (10:59)
[2024-03-07] MEDS: NSS 500 IV (10:59)
[2024-03-07 11:03] LABS: Glucose - Point of Care 144 mg/dl (70-99)
--- NOTE | 2024-03-07 12:25 | W.SUR.PREOP ---
Pre-Operative Surgical Note
-
I have examined this patient prior to the performance of the scheduled procedure.
The patient's condition is unchanged from the time of the current History and
Physical and the patient is able to undergo the scheduled procedure.
[2024-03-07 15:13] LABS: Glucose - Point of Care 160 mg/dl (70-99)
[2024-03-07] MEDS: DILAUDID 0.5 MG IV ×2 (15:15→15:31)
[2024-03-07] MEDS: DILAUDID 0.25 MG IV ×3 (15:26→16:01)
--- NOTE | 2024-03-07 16:21 | OR.RPT ---
Operative Report
Operative Report
PROCEDURE DATE: 03/07/2024
Preoperative diagnosis: Left foot severe chronic ischemic changes including early gangrene, intractable ischemic rest pain.
Postoperative diagnosis: Same
Procedure: Left below the knee amputation
Surgeon: Michael
Lead Project Manager: Emeli, required for all aspects of procedure including assistance with traction/countertraction, assistance with closure.
Complications: None
Anesthesia: General
Indications for procedure:
Patient had prior occluded left lower extremity arterial bypass. No unreconstructable disease at this point. Severe ischemic rest pain as well as ischemic changes to the foot. Therefore brought for below the knee amputation. Discussed potential
need for [id number] amputation. Risk/benefits/alternatives all extensively discussed. Patient and his family understood all wish to proceed.
Description of procedure:
Patient was identified brought to the operating room placed on the table in supine position. After the adequate administration of anesthesia and perioperative antibiotics he was prepped and draped in the standard surgical fashion. A standard
preoperative timeout was undertaken and everybody was in agreement the plan. Standard posterior flap type incisions were made in the left lower extremity with a transverse incision anteriorly at approximately 10 cm distal to the tibial tuberosity
(slightly more proximal than usual because of concern for skin adequacy more distally). Medial and lateral longitudinal incisions were carried down. And then posterior transverse incision was then again carried down. The incisions were carried
through the skin subcutaneous tissue with the electrocautery and then through the fascial layer. Hemostasis was achieved as we progressed. Note there was a moderate amount of edematous/serous subcutaneous fluid. Next the muscles of the anterior
and lateral compartments of the calf were divided with electrocautery. The anterior tibial neurovascular bundle was ligated between heavy silk ties and then divided. The muscles/attachments of the tibia medially were also divided with
electrocautery. As such the tibia was then freed of all its attachments and a periosteal elevator was used to elevate the periosteum circumferentially. The fibula was similarly freed of all its surrounding soft tissue and muscles. These were
transected with electrocautery. The intermuscular septum was then divided with electrocautery. Circumferential dissection of the fibula was undertaken carefully and a periosteal elevator was used to elevate the periosteum circumferentially around
the fibula as well. At this point the tibia and fibula were transected with an oscillating saw. The posterior tissues were then cut with a amputation knife and a direction parallel to the access of the leg. This was then teed off in a
perpendicular access at the distal posterior transverse skin incision site. The leg specimen was then removed. The peroneal and posterior tibial arteries were then controlled with hemostats. These were then ligated. (Ligated distally and the
transection site). Next I removed any redundant muscle with the electrocautery. Due to the muscular nature of his calf, I had to remove a moderate amount of redundant musculature to allow debulking for adequate closure. I the ligated the peroneal
and posterior tibial arteries and veins with silk suture ligatures proximally just distal to the bone transection site. Next hemostasis was achieved throughout the muscle bed with [id number] 2-0 and 3-0 silk suture. Next the oscillating saw
was used to bevel the anterior aspect of the tibia so as to avoid any pressure point. A rasp was used to smooth the edges. The fibula was then re- transected with the oscillating saw to a point approximately 1 cm proximal to the tibial
transection. A rasp was used to smooth the edges. Next we irrigated copiously. Hemostasis was confirmed. We then closed in layers after trimming the skin flap of any redundant/dogear type projections. 0 Vicryl interrupted suture was used to
approximate the fascial layer. Next running 3-0 Vicryl deep dermal suture layer was run. Finally skin clips were applied. Bulky dressings were applied. The patient tolerated procedure well.
[2024-03-07 16:41] LABS: Glucose - Point of Care 225 mg/dl (70-99)
[2024-03-07 16:47] LABS: Hematocrit 35.9 % (39.0-52.0); Hemoglobin 11.5 g/dL (13.0-18.0); Mean Corpuscular Volume 90.7 fL (80.0-94.0); Mean Platelet Volume 8.8 fL (7.4-10.4); Platelet Count 301 10^3/uL (130-400); Red Blood Cell Count 3.96 10^6/uL (4.70-6.10); Red Cell Dist. Width 15.2 % (11.5-14.5); White Blood Cell Count 9.4 10^3/uL (4.8-10.8)
[2024-03-07 17:07] LABS: Blood Urea Nitrogen 34 mg/dl (9-20); Calcium 9.2 mg/dl (8.4-10.2); Carbon Dioxide 22 mmol/L (22-30); Chloride 101 mmol/L (98-107); Estimated Creatinine Clearance 71 ml/min; Glucose 187 mg/dl (70-99); Potassium 5.1 mmol/L (3.5-5.1); Sodium 134 mmol/L (135-145); eGFR > 60.00
[2024-03-07] MEDS: HEPARIN 5000 UNITS SC (17:18)
[2024-03-07] MEDS: GLUCOPHAGE 1000 MG PO (17:18)
[2024-03-07] MEDS: GLUCOTROL 5 MG PO (17:18)
--- NOTE | 2024-03-07 17:20 | PTCARENOTE ---
Received patient from PACU. AAOx3, in bed. Assessed and oriented to room. Left BKA dressing noted, CDI. Monson catheter intact. RUGB[employer] LEAGUE FOOTBALLER pump (see intervention) initiated with NSS @ 40ml/hr. Call felix in close reach.
[2024-03-07] MEDS: DILAUDID PCA 30 IV (17:23)
[2024-03-07] MEDS: NOVOLOG FLEXPEN-LOW RESISTANCE 2 UNITS SC (17:40)
[2024-03-07] MEDS: SENOKOT-S 1 TABLET PO (20:32)
[2024-03-07 21:54] LABS: Glucose - Point of Care 163 mg/dl (70-99)
[2024-03-08] VITALS (7 sets, daily range): BP systolic 96–162; BP diastolic 58–85; PULSE 83; O2SAT 96
[2024-03-08] MEDS: HEPARIN 5000 UNITS SC ×4 (01:25→23:49)
[2024-03-08 06:59] LABS: Glucose - Point of Care 127 mg/dl (70-99)
[2024-03-08 07:26] LABS: Hematocrit 33.5 % (39.0-52.0); Hemoglobin 10.8 g/dL (13.0-18.0); Mean Corp Hgb Conc. 32.2 g/dL (33.0-37.0); Mean Corpuscular Hgb 29.3 pg (27.0-31.0); Platelet Count 311 10^3/uL (130-400); Red Blood Cell Count 3.68 10^6/uL (4.70-6.10); Red Cell Dist. Width 15.2 % (11.5-14.5); White Blood Cell Count 9.5 10^3/uL (4.8-10.8)
[2024-03-08 07:44] LABS: INR 1.18; PT 14.8 Sec (11.4-14.6)
[2024-03-08 07:57] LABS: Blood Urea Nitrogen 31 mg/dl (9-20); Calcium 9.2 mg/dl (8.4-10.2); Carbon Dioxide 23 mmol/L (22-30); Chloride 100 mmol/L (98-107); Estimated Creatinine Clearance 78 ml/min; Glucose 125 mg/dl (70-99); Potassium 4.9 mmol/L (3.5-5.1); Sodium 136 mmol/L (135-145); eGFR > 60.00
[2024-03-08] MEDS: IMDUR (EXTENDED RELEASE) 30 MG PO (08:10)
[2024-03-08] MEDS: NOVOLOG FLEXPEN-LOW RESISTANCE SC (08:10)
[2024-03-08] MEDS: LIPITOR 40 MG PO (08:10)
[2024-03-08] MEDS: TOPROL XL 25 MG PO (08:10)
[2024-03-08] MEDS: ASPIR LOW (ENTERIC COATED) 81 MG PO (08:10)
[2024-03-08] MEDS: JARDIANCE 25 MG PO (08:10)
[2024-03-08] MEDS: JANUVIA 100 MG PO (08:10)
[2024-03-08] MEDS: GLUCOPHAGE 1000 MG PO ×2 (08:10→18:15)
[2024-03-08] MEDS: GLUCOTROL 5 MG PO ×2 (08:10→18:15)
[2024-03-08] MEDS: ZESTRIL 20 MG PO (08:11)
--- NOTE | 2024-03-08 08:19 | W.PN.VS ---
Today's Communication / Plan
-
Patient seen and examined at bedside with Dr. Frankie Monson III, below plan reviewed with attending
Assessment/Plan
-
Assessment: 73-year-old male POD #1 left BKA
PT/OT
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
Discontinue Monson catheter
Will change dressing tomorrow
Subjective Data
-
Date of Service: March 08, 2024
Patient seen and examined at bedside, offers no complaints. Reports adequate postoperative pain management. Denies nausea, vomiting, fever, and chills.
Objective Data
-
Vital Signs
Temp Pulse Resp BP Pulse Ox
98.5 F 83 16 162/70 98
03/08/24 07:10 03/08/24 07:10 03/08/24 08:00 03/08/24 07:10 03/08/24 08:00
Intake and Output
03/07/24 03/08/24 03/09/24
06:59 06:59 06:59
Intake Total 640 / 640
Output Total 1450 / 1450
Balance -810 / -810
Intake:
Oral fluids 20 / 20
IV fluids (Total) 620 / 620
NS 100 / 100
NSS 40 / 40
Output:
Urine, Monson 1450 / 1450
Lab Results
03/08/24 07:06
03/08/24 07:06
Calcium 9.2 mg/dl (8.4-10.2) 03/08/24 07:06
Physical Exam
-
Resting bed comfortably
No dyspnea
ABD rotund and soft
Left BKA site CDI
--- NOTE | 2024-03-08 10:29 | VNURNOTE ---
Patient is current with [facility] since 01/29 w/SN/PT, will monitor progress and plan at discharge.
[2024-03-08 11:58] LABS: Glucose - Point of Care 151 mg/dl (70-99)
--- NOTE | 2024-03-08 12:00 | CM ---
CM met with pt and spouse
[place]
Pt is typically independent with all ADLs w/o any ADs
For the past week, he has been utilizing a WW
Pt is current with VN and Palliative
PCP- Marvin Alanis
Rx0 [facility]
Pt is POD#1 L BKA
Anticipate need for rehab on dc
Pt and spouse interested in [facility]
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
Explained role of PMR and prior auth in [facility] approval
TT/Nichole Banuelos requesting post-op PT/OT/PMR orders
Referral sent to [facility] via [facility]
Discharge Disposition- anticipate acute rehab
[2024-03-08] MEDS: NOVOLOG FLEXPEN-LOW RESISTANCE 1 UNITS SC ×2 (12:12→18:16)
[2024-03-08] MEDS: NEURONTIN 100 MG PO ×2 (15:53→22:28)
[2024-03-08] MEDS: NSS 1000 IV (15:54)
[2024-03-08 17:01] LABS: Glucose - Point of Care 159 mg/dl (70-99)
[2024-03-08] MEDS: SENOKOT-S 1 TABLET PO (22:28)
[2024-03-09] VITALS (8 sets, daily range): BP systolic 93–162; BP diastolic 55–88; PULSE 86–88; O2SAT 96
--- NOTE | 2024-03-09 04:53 | DOWNTIME ---
There was a [employer] Client Table Attendant Downtime on 03/09/2024 from 0100 to 03/09/2024 at 0439. Downtime documentation of patient's care, including medication administrations, has been reconciled in the electronic record per guidelines. Refer to the
patient's paper chart under the miscellaneous tab to see printed paper medication records and downtime forms.
[2024-03-09 07:14] LABS: Glucose - Point of Care 166 mg/dl (70-99)
--- NOTE | 2024-03-09 07:29 | W.PN.VS ---
Addendum entered and electronically signed by Aldair Rodriguez MD 03/09/24 07:41:
Seen and examined with KATELYNN Banuelos. Agree with findings as noted below. Left BKA dressing clean dry and intact, no evidence of hematoma or blood staining. Plan/as discussed and noted below. Awaiting a.m. labs. Will remove dressing tomorrow.
Possible placement tomorrow.
Original Note:
Today's Communication / Plan
-
Patient seen and examined at bedside with Dr. Aldair Rodriguez, below plan reviewed with attending
Assessment/Plan
-
Assessment: 73-year-old male POD #2 left BKA
Continue with PT/OT
Will transition to p.o. pain medication
Disposition planning, consultation to [facility] pending
Will defer an additional day prior to dressing change to decrease risk of increased edema, possible discharge to rehab tomorrow following dressing change if cable accepts
Subjective Data
-
Date of Service: March 09, 2024
Patient seen and examined at bedside, reports adequate postoperative pain management. Denies nausea, vomiting, fever, and chills.
Objective Data
-
Vital Signs
Temp Pulse Resp BP Pulse Ox
98.7 F 86 16 138/55 94
03/09/24 03:58 03/09/24 03:58 03/09/24 04:00 03/09/24 03:58 03/09/24 04:00
Intake and Output
03/08/24 03/09/24 03/10/24
06:59 06:59 06:59
Intake Total 640 / 640 1140 / 1140
Output Total 1450 / 1450 1350 / 1350
Balance -810 / -810 -210 / -210
Intake:
Oral fluids 20 / 20 1140 / 1140
IV fluids (Total) 620 / 620
NS 100 / 100
NSS 40 / 40
Output:
Urine, Monson 1450 / 1450 350 / 350
Urine, Voided 1000 / 1000
Other:
How many times incontinent 2
SATURATED amount urine
Calcium 9.2 mg/dl (8.4-10.2) 03/08/24 07:06
Physical Exam
-
Resting bed comfortably
No dyspnea
ABD rotund and soft
Left BKA dressing site CDI
[2024-03-09 07:57] LABS: Hematocrit 34.4 % (39.0-52.0); Hemoglobin 11.1 g/dL (13.0-18.0); Mean Corp Hgb Conc. 32.3 g/dL (33.0-37.0); Mean Corpuscular Hgb 29.4 pg (27.0-31.0); Mean Platelet Volume 8.9 fL (7.4-10.4); Platelet Count 283 10^3/uL (130-400); Red Blood Cell Count 3.78 10^6/uL (4.70-6.10); White Blood Cell Count 8.9 10^3/uL (4.8-10.8)
[2024-03-09] MEDS: ROXICODONE 5 MG PO ×3 (08:24→19:58)
[2024-03-09] MEDS: HEPARIN 5000 UNITS SC ×3 (08:41→23:15)
[2024-03-09] MEDS: NOVOLOG FLEXPEN-LOW RESISTANCE 1 UNITS SC ×3 (09:04→17:52)
[2024-03-09] MEDS: ASPIR LOW (ENTERIC COATED) 81 MG PO (09:06)
[2024-03-09] MEDS: TOPROL XL 25 MG PO (09:07)
[2024-03-09] MEDS: JARDIANCE 25 MG PO (09:09)
[2024-03-09] MEDS: GLUCOPHAGE 1000 MG PO ×2 (09:10→17:51)
[2024-03-09] MEDS: JANUVIA 100 MG PO (09:10)
[2024-03-09] MEDS: LIPITOR 40 MG PO (09:11)
[2024-03-09] MEDS: GLUCOTROL 5 MG PO ×2 (09:12→17:51)
[2024-03-09] MEDS: NEURONTIN 100 MG PO ×4 (09:12→19:58)
[2024-03-09] MEDS: ZESTRIL 20 MG PO (09:14)
[2024-03-09] MEDS: IMDUR (EXTENDED RELEASE) 30 MG PO (09:15)
[2024-03-09 09:16] LABS: Blood Urea Nitrogen 26 mg/dl (9-20); Calcium 9.1 mg/dl (8.4-10.2); Carbon Dioxide 20 mmol/L (22-30); Chloride 102 mmol/L (98-107); Estimated Creatinine Clearance 86 ml/min; Glucose 130 mg/dl (70-99); Sodium 134 mmol/L (135-145); eGFR > 60.00
[2024-03-09 09:21] LABS: Potassium 4.6 mmol/L (3.5-5.1)
[2024-03-09 12:00] LABS: Glucose - Point of Care 159 mg/dl (70-99)
[2024-03-09] MEDS: TYLENOL 650 MG PO (12:12)
[2024-03-09] MEDS: MIRALAX 17 GRAMS PO (13:15)
--- NOTE | 2024-03-09 14:11 | PN.CDI ---
CDI
- -
CDI:
Physician Documentation Request
Admit Date: 03/07/24 09:56
Dear Doctor Micheal,
Please review the following and provide your response in the progress notes.
Clinical Indicators:
Pt admitted with ischemic rest pain/PVD for Left BKA
Sodium levels are as below/Pt did get IVFs
03/07/24 03/09/24
16:37 07:33
Sodium 134 L 134 L
Based on the above, could you clarify in the progress notes, the appropriate diagnosis, if significant, that supports the above abnormalities and additional evaluation, monitoring and/or treatment rendered:
Hyponatremia
Abnormal lab value only
Other
Use of terms such as suspected, likely, concern for, or probable (associated with a specific diagnosis that is being evaluated, monitored, or treated as if it exists) are acceptable and can be coded in the inpatient setting, when documented at the
time of discharge.
Thank you,
Sarah Looney RN
CDI Specialist
[facility] [employer]
Please use your independent medical judgment in providing your response.
--- NOTE | 2024-03-09 14:36 | CON.MD ---
Addendum entered and electronically signed by Liam Sauceda MD 03/10/24 21:34:
A total of 60 minutes were spent with the patient preparing for the evaluation, obtaining history, performing examination and evaluation, counseling, data review, case management, care coordination, psychiatric orderly, and EMR documentation.
Original Note:
Documented by User: Chrissy Patterson PA-C 03/10/24 09:38
Consultation - Medical
-
Referring Provider: Dr. Aldair Rodriguez
Chief Complaint: Ambulatory dysfunction status post left below the knee amputation
History of Present Illness: This is a 73 year old male with PMH of (diabetes, gout, hyperlipidemia, hypertension, CAD status post CABG, lower extremity bypass who presented to in January of 2024 with cellulitis and pain in the left leg. He was
evaluated by vascular surgery at the time and was found with thrombosed graft for which an amputation was recommended . Patient was treated for cellulitis and opted to continue with palliative care measures. He had an outpatient follow up with "Silvana"Michael and was found to have severe chronic ischemic changes including early gangrene, and intractable ischemic rest pain in the left foot. On 03/07 2024, he underwent left below the knee amputation. Reported 1 episode of phantom pain that lasted a
few seconds and resolved the night before. He is currently gabapentin and oxycodone which are helping. He reported his last bowel movement to have been a day ago.
Past Medical History: diabetes, gout, hyperlipidemia, hypertension, CAD status post CABG, lower extremity bypass, PAD,
Procedure History: AAA repair, left shoulder rotator cuff repair, coronary artery bypass graft, left lower extremity angioplasty, left superficial femoral artery to anterior tibial artery bypass,
Family History: Not pertinent
Social History:
Functional Level Premorbidly: Independent with all activities and use of rolling walker
Functional Level Currently: Bed mobility�max assist, supine to sit�mod assist, toileting�max assist, transfer�max assist, unable to pivot. Continues to require max assist of 2 people for all mobility. Utilize scooting along edge of bed with
partial stand to advance hips into chair.
Tobacco: Quit about 5 years ago.
Alcohol: Occasional, but prior heavy alcohol use.
Drug use: Denies
Lives with: Family
24-hour assistance available:
Number of floors: One-story home
# steps to enter: 1
# steps to second floor: 0
Potential First floor set up:yes
Driving: yes
Occupation: Retired [employer] flatbed truck driver
�
Allergies:
Allergy/AdvReac Type Severity Reaction Status Date / Time
No Known Allergies Allergy Verified 03/07/24 10:39
Review of Systems:
Constitutional: (x) Normal _
Eye: (x) Normal _
Ear/Nose/Throat: (x) Normal _
Respiratory: (x) Normal _
Cardiovascular: (x) CAD, PAD,
Gastrointestinal: (x) Normal _
Genitourinary: (x) Normal _
Musculoskeletal: (x) left BKA
Integumentary: (x) Normal _
Neurologic: (x) Normal _
Psychiatric: (x) Normal _
Endocrine: (x) Normal _
Hematologic/Lymphatic: (x) Normal _
Allergic/Immunologic: (x) Normal _
Medications:
Active Current Visit Medication List
Category Date Time Status
Acetaminophen [Tylenol] Med 03/09/24 07:42 Active
650 mg PO Q4HPRN PRN
Aspirin Low Dose EC [Aspir Low (Enteric Coated)] Med 03/08/24 08:00 Active
81 mg PO DAILY
Atorvastatin [Lipitor] Med 03/08/24 08:00 Active
40 mg PO DAILY
Dextrose 50%-Water [Dextrose 50% Syringe] Med 03/07/24 16:08 Active
12.5 grams IV [id number] PRN
Docusate W/Senna [Senokot-S] Med 03/07/24 22:00 Active
1 tablet PO HS
Empagliflozin [Jardiance] Med 03/08/24 08:00 Active
25 mg PO DAILY
Flush (0.9% Sodium Chloride) [Flush (Nss)] Med 03/07/24 17:00 Active
See Dose Instructions IV PER PROTOCOL
Gabapentin [Neurontin] Med 03/08/24 16:00 Active
100 mg PO TID
GlipiZIDE [Glucotrol] Med 03/07/24 17:00 Active
5 mg PO BID AT 0800,1700
Glucagon [GlucaGen] Med 03/07/24 16:08 Active
1 mg IM PRN PRN
HYDROmorphone [Dilaudid] Med 03/09/24 07:43 Active
0.5 mg IV Q4HPRN PRN
Heparin Med 03/07/24 16:00 Active
5,000 units SC Q8
ISOSORBIDE MONOnitrate ER [Imdur (Extended Release)] Med 03/08/24 08:00 Active
30 mg PO DAILY
Insulin Aspart Corrective Low [Novolog Flexpen-Low Med 03/07/24 16:30 Active
Resistance]
See Protocol SC AC
Lisinopril [Zestril] Med 03/08/24 08:00 Active
20 mg PO DAILY
METFORMIN HCl [Glucophage] Med 03/07/24 17:00 Active
1,000 mg PO BID AT 0800,1700
Metoprolol Xl [Toprol Xl] Med 03/08/24 08:00 Active
25 mg PO DAILY
Oxycodone [Roxicodone] Med 03/09/24 07:42 Active
5 mg PO Q4HPRN PRN
Polyethylene Glycol Powder [Miralax] Med 03/09/24 13:00 Active
17 grams PO DAILY
Sitagliptin Phosphate [Januvia] Med 03/08/24 08:00 Active
100 mg PO DAILY
Vitals:
Temp Pulse Resp BP Pulse Ox
99.4 F 83 20 128/63 94
03/10/24 03:29 03/10/24 03:29 03/10/24 03:29 03/10/24 03:29 03/10/24 03:29
Height 5 ft 9.5 in
Actual Weight 97.52 kg
Body Mass Index (BMI) 31.3
Physical Exam:
General Appearance/Observation: Well-developed, well-nourished individual in no apparent distress.
Pain/Comfort Assessment: Left stump
Mood/Affect: Appropriate
Integumentary/Operative Site: Left stump wrapped.
�� Pressure Ulcer Evaluation: absent over heel.
��
�� Other Type of Wound: absent
��
Eyes: Conjunctiva/Lids: normal ��� Pupils: pupils equal round and reactive to light and Accommodation
Ears/Nose/Throat: oral mucosa moist,� throat clear.������������ Lips/Teeth/Gums: normal
Neck: No muscle spasm or tenderness
Cardiovascular: Heart: regular, no murmur
Pulses: dorsalis pedis 2+ right foot
Respiratory: Respiratory Effort/Chest Expansion: normal ������� Auscultation: Clear to auscultation bilaterally
Gastrointestinal: abdomen not tender, no distension, normal abdominal bowel sounds
Genitourinary: No Monson
Extremities: Edema: left stump, thigh Cyanosis: None Trophic changes: None
Neurology Exam:
Orientation: Alert, Oriented to self, Time, Place
Memory: Intact for immediate medical concerns
Higher cortical function
Repetition: Intact
Comprehension: Intact
Two step command: Intact
Naming: Intact
Cranial Nerves:
�� CNII: Pupillary light reflex: Intact��� Visual Field: Intact
�� CN III, IV, : Extraocular muscles: Intact
�� CN V: Facial Sensation at Forehead: Intact, Maxilla: Intact, Mandible: Intact
�� CN VII: Facial movement: Symmetric
�� CN VIII: Hearing: Normal
�� CN IX/X: Speech & swallow: Normal, Position of Uvula: Midline
�� CN XI: Shoulder shrug: Symmetric
�� CN XII: Tongue protrusion: Midline
Sensory:
�� Light touch: Intact in bilateral upper and lower extremities
��
Reflexes:
�� Biceps: 1+ bilaterally
�� Brachioradialis: 1+ bilaterally
�� Triceps: 1+ bilaterally
�� Patellar: 2+right, deferred left
�� Achilles: absent right
�� Babinski: Down going on right
�� Clonus: None
�� Adi: Negative bilaterally
Cerebellar: Dysmetria/Ataxia: None
Musculoskeletal:
Motor: (Manual muscle scale 0-5)
Muscle SA EF WE EE FF FA HF KE DF EHL PF
Right� 5 5 5 5 5 5 5 5 5 5 5
Left 5 5 5 5 5 5 1 1 - - -
Tone: Normal in all extremities
Range of Motion: Passively within normal limits in all extremities, deferred left
Lab Results
Labs
WBC 8.6 10^3/uL (4.8-10.8) 03/10/24 07:35
RBC 3.66 10^6/uL (4.70-6.10) L 03/10/24 07:35
Hgb 10.8 g/dL (13.0-18.0) L 03/10/24 07:35
Hct 33.3 % (39.0-52.0) L 03/10/24 07:35
MCV 91.0 fL (80.0-94.0) 03/10/24 07:35
MCH 29.5 pg (27.0-31.0) 03/10/24 07:35
MCHC 32.4 g/dL (33.0-37.0) L 03/10/24 07:35
RDW 15.1 % (11.5-14.5) H 03/10/24 07:35
Plt Count 291 10^3/uL (130-400) 03/10/24 07:35
MPV 9.0 fL (7.4-10.4) 03/10/24 07:35
PT 14.8 Sec (11.4-14.6) H 03/08/24 07:06
INR 1.18 03/08/24 07:06
APTT 38.0 Sec (23.4-35.0) H 03/08/24 07:06
Sodium 134 mmol/L (135-145) L 03/09/24 07:33
Potassium 4.6 mmol/L (3.5-5.1) 03/09/24 07:33
Chloride 102 mmol/L (98-107) 03/09/24 07:33
Carbon Dioxide 20 mmol/L (22-30) L 03/09/24 07:33
BUN 26 mg/dl (9-20) H 03/09/24 07:33
Creatinine 0.9 mg/dL (0.7-1.3) 03/09/24 07:33
Estimated Creat Clear 86 ml/min 03/09/24 07:33
eGFR > 60.00 03/09/24 07:33
Glucose 130 mg/dl (70-99) H 03/09/24 07:33
Calcium 9.1 mg/dl (8.4-10.2) 03/09/24 07:33
POC Glucose 164 mg/dl (70-99) H 03/10/24 07:15
Blood Type O POS 03/07/24 10:25
Antibody Screen Negative (Negative) 03/07/24 10:25
�
Diagnostic Results: as per HPI
Assessment 73 year old male with PMH of (diabetes, gout, hyperlipidemia, hypertension, CAD status post CABG, lower extremity bypass , status post left below the knee amputation on 03/07 2024 due to severe ischemia and gangrene of left foot.
Plan
PT/OT to increase independence with ADLs, improve balance, coordination, endurance, strength, mobility, community reintegration, decreased burden of care on others and family education.
Left Transtibial Amputation: Monitor incision, edema control with GENNA wrap, pain control, desensitization, Phantom limb pain education, maintain full ROM at hip and knee. Gabapentin 100 3 times daily
HTN: Lisinopril 20 mg daily, metoprolol XL 25 mg daily, Imdur extended release 30 mg daily monitor closely
HLD: Atorvastatin 40 daily
Coronary artery disease/CABG : Aspirin, statin, beta-addison
DM II: Accu-Cheks, insulin sliding scale, aspart,metformin 1000 twice daily, Januvia 100 mg daily, glipizide 5 mg twice daily Jardiance 25 mg daily
Anemia: Likely multifactorial and post op. Hgb 10.8 continue to monitor.
Psych: Psychology consult.� Monitor mood, adjust medications as needed.
Skin: monitor for pressure sores/rashes/lesions.
Pain: acetaminophen or oxycodone 5 mg every 4 as needed, hydromorphone 0.5 mg IV every 4 as needed
Bowel: Colace and Senna, PRN bisacodyl.
Bladder: Time void, PVRs, PRN straight cath.
GI Prophylaxis: Pantoprazole
DVT Prophylaxis: Mechanical and heparin 5000 units Q8
Pulmonary: Incentive spirometry
Safety: Continue to reinforce assistance with all transfers.
Code Status:� Full code
Dispo (date/plan/equipment needs): Home with family care.� Social history reviewed.
Functional and Medical Goals: Modified Independent with ADL�s, ambulation, transfers
Discharge Destination: Patient would benefit from acute inpatient rehabilitation for PT/OT status post left below the knee amputation with ambulatory dysfunction. Currently functioning at Bed mobility�max assist, supine to sit�mod assist,
toileting�max assist, transfer�max assist, unable to pivot. Continues to require max assist of 2 people for all mobility. Utilize scooting along edge of bed with partial stand to advance hips into chair.
Summary of recommendations:
Left Transtibial Amputation With Ambulatory Dysfunction: Monitor incision, edema control with GENNA wrap, pain control, desensitization, Phantom limb pain education, maintain full ROM at hip and knee. Gabapentin 100 can be increased to 3 times daily
as tolerated
HTN: Lisinopril 20 mg daily, metoprolol XL 25 mg daily, Imdur extended release 30 mg daily monitor closely
Skin: monitor for pressure sores/rashes/lesions.
Pain: acetaminophen or oxycodone 5 mg every 4 as needed, hydromorphone 0.5 mg IV every 4 as needed. Patient will need to be stable on p.o. pain medications for at least 24 hours prior to discharge or transfer
Bowel: Colace and Senna, PRN bisacodyl.
Bladder: Time void, PVRs, PRN straight cath.
GI Prophylaxis: Pantoprazole
DVT Prophylaxis: Mechanical and heparin 5000 units Q8
Pulmonary: Incentive spirometry
Safety: Continue to reinforce assistance with all transfers.
Thank you for allowing me to care for your patient. Please contact me with any questions or concerns.
This note was dictated using a voice recognition system. Please excuse any typographical errors from outside salesman. If you believe there are any discrepancies, please notify our office.

Documented by User: Liam Sauceda MD 03/10/24 21:31
Consultation - Medical
-
Referring Provider: Dr. Aldair Rodriguez
Chief Complaint: Ambulatory dysfunction status post left below the knee amputation
History of Present Illness: This is a 73 year old male with PMH of (diabetes, gout, hyperlipidemia, hypertension, CAD status post CABG, lower extremity bypass who presented to in January of 2024 with cellulitis and pain in the left leg. He was
evaluated by vascular surgery at the time and was found with thrombosed graft for which an amputation was recommended . Patient was treated for cellulitis and opted to continue with palliative care measures. He had an outpatient follow up with
Michael and was found to have severe chronic ischemic changes including early gangrene, and intractable ischemic rest pain in the left foot. On 03/07 2024, he underwent left below the knee amputation. Reported 1 episode of phantom pain that lasted a
few seconds and resolved the night before. He is currently gabapentin and oxycodone which are helping. He reported his last bowel movement to have been a day ago.
Past Medical History: diabetes, gout, hyperlipidemia, hypertension, CAD status post CABG, lower extremity bypass, PAD,
Procedure History: AAA repair, left shoulder rotator cuff repair, coronary artery bypass graft, left lower extremity angioplasty, left superficial femoral artery to anterior tibial artery bypass,
Family History: Not pertinent
Social History:
Functional Level Premorbidly: Independent with all activities and use of rolling walker
Functional Level Currently: Bed mobility�max assist, supine to sit�mod assist, toileting�max assist, transfer�max assist, unable to pivot. Continues to require max assist of 2 people for all mobility. Utilize scooting along edge of bed with
partial stand to advance hips into chair.
Tobacco: Quit about 5 years ago.
Alcohol: Occasional, but prior heavy alcohol use.
Drug use: Denies
Lives with: Family
24-hour assistance available:
Number of floors: One-story home
# steps to enter: 1
# steps to second floor: 0
Potential First floor set up:yes
Driving: yes
Occupation: Retired [employer] flatbed truck driver
�
Allergies:
Allergy/AdvReac Type Severity Reaction Status Date / Time
No Known Allergies Allergy Verified 03/07/24 10:39
Review of Systems:
Constitutional: (x) Normal _
Eye: (x) Normal _
Ear/Nose/Throat: (x) Normal _
Respiratory: (x) Normal _
Cardiovascular: (x) CAD, PAD,
Gastrointestinal: (x) Normal _
Genitourinary: (x) Normal _
Musculoskeletal: (x) left BKA
Integumentary: (x) Normal _
Neurologic: (x) Normal _
Psychiatric: (x) Normal _
Endocrine: (x) Normal _
Hematologic/Lymphatic: (x) Normal _
Allergic/Immunologic: (x) Normal _
Medications:
Active Current Visit Medication List
Category Date Time Status
Acetaminophen [Tylenol] Med 03/09/24 07:42 Active
650 mg PO Q4HPRN PRN
Aspirin Low Dose EC [Aspir Low (Enteric Coated)] Med 03/08/24 08:00 Active
81 mg PO DAILY
Atorvastatin [Lipitor] Med 03/08/24 08:00 Active
40 mg PO DAILY
Dextrose 50%-Water [Dextrose 50% Syringe] Med 03/07/24 16:08 Active
12.5 grams IV [id number] PRN
Docusate W/Senna [Senokot-S] Med 03/07/24 22:00 Active
1 tablet PO HS
Empagliflozin [Jardiance] Med 03/08/24 08:00 Active
25 mg PO DAILY
Flush (0.9% Sodium Chloride) [Flush (Nss)] Med 03/07/24 17:00 Active
See Dose Instructions IV PER PROTOCOL
Gabapentin [Neurontin] Med 03/08/24 16:00 Active
100 mg PO TID
GlipiZIDE [Glucotrol] Med 03/07/24 17:00 Active
5 mg PO BID AT 0800,1700
Glucagon [GlucaGen] Med 03/07/24 16:08 Active
1 mg IM PRN PRN
HYDROmorphone [Dilaudid] Med 03/09/24 07:43 Active
0.5 mg IV Q4HPRN PRN
Heparin Med 03/07/24 16:00 Active
5,000 units SC Q8
ISOSORBIDE MONOnitrate ER [Imdur (Extended Release)] Med 03/08/24 08:00 Active
30 mg PO DAILY
Insulin Aspart Corrective Low [Novolog Flexpen-Low Med 03/07/24 16:30 Active
Resistance]
See Protocol SC AC
Lisinopril [Zestril] Med 03/08/24 08:00 Active
20 mg PO DAILY
METFORMIN HCl [Glucophage] Med 03/07/24 17:00 Active
1,000 mg PO BID AT 0800,1700
Metoprolol Xl [Toprol Xl] Med 03/08/24 08:00 Active
25 mg PO DAILY
Oxycodone [Roxicodone] Med 03/09/24 07:42 Active
5 mg PO Q4HPRN PRN
Polyethylene Glycol Powder [Miralax] Med 03/09/24 13:00 Active
17 grams PO DAILY
Sitagliptin Phosphate [Januvia] Med 03/08/24 08:00 Active
100 mg PO DAILY
Vitals:
Temp Pulse Resp BP Pulse Ox
99.4 F 83 20 128/63 94
03/10/24 03:29 03/10/24 03:29 03/10/24 03:29 03/10/24 03:29 03/10/24 03:29
Height 5 ft 9.5 in
Actual Weight 97.52 kg
Body Mass Index (BMI) 31.3
Physical Exam:
General Appearance/Observation: Well-developed, well-nourished individual in no apparent distress.
Pain/Comfort Assessment: Left stump
Mood/Affect: Appropriate
Integumentary/Operative Site: Left stump wrapped.
�� Pressure Ulcer Evaluation: absent over heel.
��
�� Other Type of Wound: absent
��
Eyes: Conjunctiva/Lids: normal ��� Pupils: pupils equal round and reactive to light and Accommodation
Ears/Nose/Throat: oral mucosa moist,� throat clear.������������ Lips/Teeth/Gums: normal
Neck: No muscle spasm or tenderness
Cardiovascular: Heart: regular, no murmur
Pulses: dorsalis pedis 2+ right foot
Respiratory: Respiratory Effort/Chest Expansion: normal ������� Auscultation: Clear to auscultation bilaterally
Gastrointestinal: abdomen not tender, no distension, normal abdominal bowel sounds
Genitourinary: No Monson
Extremities: Edema: left stump, thigh Cyanosis: None Trophic changes: None
Neurology Exam:
Orientation: Alert, Oriented to self, Time, Place
Memory: Intact for immediate medical concerns
Higher cortical function
Repetition: Intact
Comprehension: Intact
Two step command: Intact
Naming: Intact
Cranial Nerves:
�� CNII: Pupillary light reflex: Intact��� Visual Field: Intact
�� CN III, IV, : Extraocular muscles: Intact
�� CN V: Facial Sensation at Forehead: Intact, Maxilla: Intact, Mandible: Intact
�� CN VII: Facial movement: Symmetric
�� CN VIII: Hearing: Normal
�� CN IX/X: Speech & swallow: Normal, Position of Uvula: Midline
�� CN XI: Shoulder shrug: Symmetric
�� CN XII: Tongue protrusion: Midline
Sensory:
�� Light touch: Intact in bilateral upper and lower extremities
��
Reflexes:
�� Biceps: 1+ bilaterally
�� Brachioradialis: 1+ bilaterally
�� Triceps: 1+ bilaterally
�� Patellar: 2+right, deferred left
�� Achilles: absent right
�� Babinski: Down going on right
�� Clonus: None
�� Adi: Negative bilaterally
Cerebellar: Dysmetria/Ataxia: None
Musculoskeletal:
Motor: (Manual muscle scale 0-5)
Muscle SA EF WE EE FF FA HF KE DF EHL PF
Right� 5 5 5 5 5 5 5 5 5 5 5
Left 5 5 5 5 5 5 1 1 - - -
Tone: Normal in all extremities
Range of Motion: Passively within normal limits in all extremities, deferred left
Lab Results
Labs
WBC 8.6 10^3/uL (4.8-10.8) 03/10/24 07:35
RBC 3.66 10^6/uL (4.70-6.10) L 03/10/24 07:35
Hgb 10.8 g/dL (13.0-18.0) L 03/10/24 07:35
Hct 33.3 % (39.0-52.0) L 03/10/24 07:35
MCV 91.0 fL (80.0-94.0) 03/10/24 07:35
MCH 29.5 pg (27.0-31.0) 03/10/24 07:35
MCHC 32.4 g/dL (33.0-37.0) L 03/10/24 07:35
RDW 15.1 % (11.5-14.5) H 03/10/24 07:35
Plt Count 291 10^3/uL (130-400) 03/10/24 07:35
MPV 9.0 fL (7.4-10.4) 03/10/24 07:35
PT 14.8 Sec (11.4-14.6) H 03/08/24 07:06
INR 1.18 03/08/24 07:06
APTT 38.0 Sec (23.4-35.0) H 03/08/24 07:06
Sodium 134 mmol/L (135-145) L 03/09/24 07:33
Potassium 4.6 mmol/L (3.5-5.1) 03/09/24 07:33
Chloride 102 mmol/L (98-107) 03/09/24 07:33
Carbon Dioxide 20 mmol/L (22-30) L 03/09/24 07:33
BUN 26 mg/dl (9-20) H 03/09/24 07:33
Creatinine 0.9 mg/dL (0.7-1.3) 03/09/24 07:33
Estimated Creat Clear 86 ml/min 03/09/24 07:33
eGFR > 60.00 03/09/24 07:33
Glucose 130 mg/dl (70-99) H 03/09/24 07:33
Calcium 9.1 mg/dl (8.4-10.2) 03/09/24 07:33
POC Glucose 164 mg/dl (70-99) H 03/10/24 07:15
Blood Type O POS 03/07/24 10:25
Antibody Screen Negative (Negative) 03/07/24 10:25
�
Diagnostic Results: as per HPI
Assessment 73 year old male with PMH of (diabetes, gout, hyperlipidemia, hypertension, CAD status post CABG, lower extremity bypass , status post left below the knee amputation on 03/07 2024 due to severe ischemia and gangrene of left foot.
Plan
PT/OT to increase independence with ADLs, improve balance, coordination, endurance, strength, mobility, community reintegration, decreased burden of care on others and family education.
Left Transtibial Amputation: Monitor incision, edema control with GENNA wrap, pain control, desensitization, Phantom limb pain education, maintain full ROM at hip and knee. Gabapentin 100 3 times daily
HTN: Lisinopril 20 mg daily, metoprolol XL 25 mg daily, Imdur extended release 30 mg daily monitor closely
HLD: Atorvastatin 40 daily
Coronary artery disease/CABG : Aspirin, statin, beta-addison
DM II: Accu-Cheks, insulin sliding scale, aspart,metformin 1000 twice daily, Januvia 100 mg daily, glipizide 5 mg twice daily Jardiance 25 mg daily
Anemia: Likely multifactorial and post op. Hgb 10.8 continue to monitor.
Psych: Psychology consult.� Monitor mood, adjust medications as needed.
Skin: monitor for pressure sores/rashes/lesions.
Pain: acetaminophen or oxycodone 5 mg every 4 as needed, hydromorphone 0.5 mg IV every 4 as needed
Bowel: Colace and Senna, PRN bisacodyl.
Bladder: Time void, PVRs, PRN straight cath.
GI Prophylaxis: Pantoprazole
DVT Prophylaxis: Mechanical and heparin 5000 units Q8
Pulmonary: Incentive spirometry
Safety: Continue to reinforce assistance with all transfers.
Code Status:� Full code
Dispo (date/plan/equipment needs): Home with family care.� Social history reviewed.
Functional and Medical Goals: Modified Independent with ADL�s, ambulation, transfers
Discharge Destination: Patient would benefit from acute inpatient rehabilitation for PT/OT status post left below the knee amputation with ambulatory dysfunction. Currently functioning at Bed mobility�max assist, supine to sit�mod assist,
toileting�max assist, transfer�max assist, unable to pivot. Continues to require max assist of 2 people for all mobility. Utilize scooting along edge of bed with partial stand to advance hips into chair.
Summary of recommendations:
Left Transtibial Amputation With Ambulatory Dysfunction: Monitor incision, edema control with GENNA wrap, pain control, desensitization, Phantom limb pain education, maintain full ROM at hip and knee. Gabapentin 100 can be increased to 3 times daily
as tolerated
HTN: Lisinopril 20 mg daily, metoprolol XL 25 mg daily, Imdur extended release 30 mg daily monitor closely
Skin: monitor for pressure sores/rashes/lesions.
Pain: acetaminophen or oxycodone 5 mg every 4 as needed, hydromorphone 0.5 mg IV every 4 as needed. Patient will need to be stable on p.o. pain medications for at least 24 hours prior to discharge or transfer
Bowel: Colace and Senna, PRN bisacodyl.
Bladder: Time void, PVRs, PRN straight cath.
GI Prophylaxis: Pantoprazole
DVT Prophylaxis: Mechanical and heparin 5000 units Q8
Pulmonary: Incentive spirometry
Safety: Continue to reinforce assistance with all transfers.
Thank you for allowing me to care for your patient. Please contact me with any questions or concerns.
This note was dictated using a voice recognition system. Please excuse any typographical errors from outside salesman. If you believe there are any discrepancies, please notify our office.
Referring Provider: Dr. Aldair Rodriguez
Chief Complaint: Left transtibial amputation
History of Present Illness: 73-year-old male with PMH (as below) presented to [facility] on 03/07/2024 for elective left transtibial amputation by Dr. Aldair Rodriguez following failure of bypass graft. Has mild postoperative anemia at 11 from 12
on admission. Has surgical pain but no phantom pain.
Past Medical History: PAD, HTN, CAD, abdominal aortic aneurysm, type 2 diabetes
Procedure History: left shoulder rotator cuff repair 2014, CABG x 3 2019, aortic repair 2019, cataracts 2021, 04/09/2023 left STA to JUVENTINO vascular bypass with wound exploration 05/12/2023
Family History: Father with heart disease, diabetes, HTN, diabetes. Mother with cancer. Sister from pancreatic cancer
Social History:
Functional Level Premorbidly: Modified independent with all activities using rolling walker
Functional Level Currently:�� Max assist toileting, mod assist bed mobility, max assist transfers.
Tobacco: Former
Alcohol: Denies
Drug use: Denies
Lives with: Spouse
24-hour assistance available: Yes
Number of floors: 1
# steps to enter: 1
Driving: Yes
Occupation:
Allergies:
Allergy/AdvReac Type Severity Reaction Status Date / Time
No Known Allergies Allergy Verified 03/07/24 10:39
Review of Systems:
Constitutional: (x) abNormal _fatigue
Eye: (x) Normal _
Ear/Nose/Throat: (x) Normal _
Respiratory: (x) Normal _
Cardiovascular: (x) abNormal _peripheral arterial disease with failed left lower extremity bypass requiring transtibial amputation
Gastrointestinal: (x) Normal _
Genitourinary: (x) Normal _
Musculoskeletal: (x) abNormal _left leg pain
Integumentary: (x) Normal _
Neurologic: (x) Normal _
Psychiatric: (x) Normal _
Endocrine: (x) Normal _
Hematologic/Lymphatic: (x) Normal _
Allergic/Immunologic: (x) Normal _
Medications:
Active Current Visit Medication List
Category Date Time Status
Acetaminophen [Tylenol] Med 03/09/24 07:42 Active
650 mg PO Q4HPRN PRN
Aspirin Low Dose EC [Aspir Low (Enteric Coated)] Med 03/08/24 08:00 Active
81 mg PO DAILY
Atorvastatin [Lipitor] Med 03/08/24 08:00 Active
40 mg PO DAILY
Dextrose 50%-Water [Dextrose 50% Syringe] Med 03/07/24 16:08 Active
12.5 grams IV [id number] PRN
Docusate W/Senna [Senokot-S] Med 03/07/24 22:00 Active
1 tablet PO HS
Empagliflozin [Jardiance] Med 03/08/24 08:00 Active
25 mg PO DAILY
Flush (0.9% Sodium Chloride) [Flush (Nss)] Med 03/07/24 17:00 Active
See Dose Instructions IV PER PROTOCOL
Gabapentin [Neurontin] Med 03/08/24 16:00 Active
100 mg PO TID
GlipiZIDE [Glucotrol] Med 03/07/24 17:00 Active
5 mg PO BID AT 0800,1700
Glucagon [GlucaGen] Med 03/07/24 16:08 Active
1 mg IM PRN PRN
HYDROmorphone [Dilaudid] Med 03/09/24 07:43 Active
0.5 mg IV Q4HPRN PRN
Heparin Med 03/07/24 16:00 Active
5,000 units SC Q8
ISOSORBIDE MONOnitrate ER [Imdur (Extended Release)] Med 03/08/24 08:00 Active
30 mg PO DAILY
Insulin Aspart Corrective Low [Novolog Flexpen-Low Med 03/07/24 16:30 Active
Resistance]
See Protocol SC AC
Lisinopril [Zestril] Med 03/08/24 08:00 Active
20 mg PO DAILY
METFORMIN HCl [Glucophage] Med 03/07/24 17:00 Active
1,000 mg PO BID AT 0800,1700
Metoprolol Xl [Toprol Xl] Med 03/08/24 08:00 Active
25 mg PO DAILY
Oxycodone [Roxicodone] Med 03/09/24 07:42 Active
5 mg PO Q4HPRN PRN
Polyethylene Glycol Powder [Miralax] Med 03/09/24 13:00 Active
17 grams PO DAILY
Sitagliptin Phosphate [Januvia] Med 03/08/24 08:00 Active
100 mg PO DAILY
Vitals:
Temp Pulse Resp BP Pulse Ox
98.9 F 87 17 113/59 97
03/09/24 15:02 03/09/24 15:02 03/09/24 15:02 03/09/24 15:02 03/09/24 15:02
Height 5 ft 9.5 in
Actual Weight 97.52 kg
Body Mass Index (BMI) 31.3
Physical Exam:
General Appearance/Observation: Well-developed, well-nourished male in no apparent distress.
Pain/Comfort Assessment: Denies
Mood/Affect: Appropriate
Integumentary/Operative Site: [place] C/D/I wider at disatl portion particularly medially. Has some blanchable erythema over the patella and DTI over tibial tuberosity on the left.
�� Pressure Ulcer Evaluation: absent over right heel
Eyes: Conjunctiva/Lids: normal ��� Pupils: pupils equal round and reactive to light and Accommodation
Ears/Nose/Throat: oral mucosa moist,� throat clear.������������ Lips/Teeth/Gums: normal
Neck: No muscle spasm or tenderness
Cardiovascular: Heart: regular, no murmur
Pulses: dorsalis pedis 2+ bilaterally
Respiratory: Respiratory Effort/Chest Expansion: normal ������ Auscultation: Clear to auscultation bilaterally
Gastrointestinal: abdomen not tender, no distension, normal abdominal bowel sounds
Genitourinary: No Monson
Extremities: Edema: None Cyanosis: None Trophic changes: None
Neurology Exam:
Orientation: Alert, Oriented to self, Time, Place
Memory: Intact immediately and at 3 minutes
Higher cortical function
Repetition: Intact
Comprehension: Intact
Two step command: Intact
Naming: Intact
Cranial Nerves:
�� CNII: Pupillary light reflex: Intact��� Visual Field: Intact
�� CN III, IV, : Extraocular muscles: Intact
�� CN V: Facial Sensation at Forehead: Intact, Maxilla: Intact, Mandible: Intact
�� CN VII: Facial movement: Symmetric
�� CN VIII: Hearing: Normal
�� CN IX/X: Speech & swallow: Normal, Position of Uvula: Midline
�� CN XI: Shoulder shrug: Symmetric
�� CN XII: Tongue protrusion: Midline
Sensory:
�� Light touch: Intact in bilateral upper and lower extremities, no extinction to double simultaneous stimulation
Reflexes:
�� Biceps: 2+ bilaterally
�� Brachioradialis: 2+ bilaterally
�� Triceps: 2+ bilaterally
�� Patellar: 2+ bilaterally
�� Achilles: 0 right
�� Babinski: Down going right
�� Clonus: None
�� Adi: Negative bilaterally
Cerebellar: Dysmetria/Ataxia: None
Musculoskeletal:Motor: (Manual muscle scale 0-5)
Muscle SA EF WE EE FF FA HF KE DF EHL PF
Right� 5 5 5 5 5 5 5 5 5 5 5
Left 5 5 5 5 5 5 5 4 - - -
Tone: Normal in all extremities
Range of Motion: Passively within normal limits in all extremities
Lab Results
Laboratory Data
03/10/24 07:35
03/10/24 07:35
PT 14.8 Sec (11.4-14.6) H 03/08/24 07:06
INR 1.18 03/08/24 07:06
APTT 38.0 Sec (23.4-35.0) H 03/08/24 07:06
Diagnostic Results: as per HPI
Assessment
73-year-old male with PMH (PAD, HTN, CAD, abdominal aortic aneurysm, type 2 diabetes) S/P 03/07/2024 elective left transtibial amputation by Dr. Aldair Rodriguez.
Plan
PM&R PT/OT to increase independence with ADLs, improve balance, coordination, endurance, strength, mobility, community reintegration, decreased burden of care on others and family education.
Left transtibial Amputation: Monitor incision, edema control with GENNA wrap, pain control, desensitization, Phantom limb pain education, maintain full ROM at hip and knee.
-Avoid wrapping of the left leg for now with DTI.
HTN: lisinopril, imdur, metoprolol, monitor closely
HLD: Statin�����
Coronary artery disease : Aspirin, statin, beta-addison
DM II: Accu-Cheks, insulin sliding scale, metformin, glipizide, Jardiance.
Anemia: Likely multifactorial.� Continue to monitor.
FEN: Diabetic
Psych: Psychology consult.� Monitor mood, adjust medications as needed.
Skin: monitor for pressure sores/rashes/lesions.
Pain: acetaminophen or oxycodone as needed. Gabapentin
Bowel: Colace, miralax, and Senna, PRN bisacodyl.
Bladder: Time void, PVRs, PRN straight cath.
GI Prophylaxis: Pantoprazole
DVT Prophylaxis: heparin
Pulmonary: Incentive spirometry
Obesity: Continue to pre parole counseling aide patient about diet adjustments to control obesity. Body habitus and increased force to move body and extremities causes further difficulty with functional tasks.
Safety: Continue to reinforce assistance with all transfers.
Code Status:� DNR per chart
Dispo (date/plan/equipment needs): Home with family care.
Functional and Medical Goals: Modified Independent with ADL�s, ambulation, transfers
Discharge Destination: Acute inpatient rehabilitation
Summary of recommendations:
- Discharge Destination: Acute inpatient rehabilitation
Left transtibial Amputation: Monitor incision, edema control with GENNA wrap, pain control, desensitization, Phantom limb pain education, maintain full ROM at hip and knee.
-Avoid wrapping of the left leg for now with DTI.
Pain: acetaminophen or oxycodone as needed. Gabapentin
DVT Prophylaxis: heparin
Thank you for allowing me to care for your patient. Please contact me with any questions or concerns.
[2024-03-09 16:30] LABS: Glucose - Point of Care 150 mg/dl (70-99)
--- NOTE | 2024-03-09 17:00 | PTCARENOTE ---
patient was received laying in bed - awake, alert and verbally responsive. patient is able to make his needs known and understands when being spoken too. patient did not have any behavioral/verbal indicators of discomfort or pain. patient continues
to have a good appetite for dinner. patient received all his medications as ordered without any difficulty. fluids encouraged throughout this nurse's shift. patient remains continent of bladder and bowel. patient family at bedside and call isidro,
telephone and television remote within reach
[2024-03-09] MEDS: SENOKOT-S 1 TABLET PO (19:58)
[2024-03-09 21:08] LABS: Glucose - Point of Care 140 mg/dl (70-99)
[2024-03-10] VITALS (8 sets, daily range): BP systolic 108–146; BP diastolic 55–69; PULSE 92–93; O2SAT 95–96
[2024-03-10 07:17] LABS: Glucose - Point of Care 164 mg/dl (70-99)
[2024-03-10 08:28] LABS: Hematocrit 33.3 % (39.0-52.0); Hemoglobin 10.8 g/dL (13.0-18.0); Mean Corp Hgb Conc. 32.4 g/dL (33.0-37.0); Mean Corpuscular Hgb 29.5 pg (27.0-31.0); Platelet Count 291 10^3/uL (130-400); Red Blood Cell Count 3.66 10^6/uL (4.70-6.10); Red Cell Dist. Width 15.1 % (11.5-14.5); White Blood Cell Count 8.6 10^3/uL (4.8-10.8)
[2024-03-10 09:18] LABS: Blood Urea Nitrogen 26 mg/dl (9-20); Calcium 9.2 mg/dl (8.4-10.2); Carbon Dioxide 22 mmol/L (22-30); Chloride 100 mmol/L (98-107); Estimated Creatinine Clearance 86 ml/min; Glucose 137 mg/dl (70-99); Potassium 4.4 mmol/L (3.5-5.1); Sodium 133 mmol/L (135-145); eGFR > 60.00
[2024-03-10] MEDS: GLUCOPHAGE 1000 MG PO ×2 (10:17→17:39)
[2024-03-10] MEDS: JANUVIA 100 MG PO (10:17)
[2024-03-10] MEDS: NOVOLOG FLEXPEN-LOW RESISTANCE 1 UNITS SC ×2 (10:17→13:21)
[2024-03-10] MEDS: HEPARIN 5000 UNITS SC ×2 (10:18→17:39)
[2024-03-10] MEDS: GLUCOTROL 5 MG PO ×2 (10:18→17:39)
[2024-03-10] MEDS: ZESTRIL 20 MG PO (10:18)
[2024-03-10] MEDS: LIPITOR 40 MG PO (10:18)
[2024-03-10] MEDS: IMDUR (EXTENDED RELEASE) 30 MG PO (10:18)
[2024-03-10] MEDS: JARDIANCE 25 MG PO (10:18)
[2024-03-10] MEDS: NEURONTIN 100 MG PO ×3 (10:19→21:48)
[2024-03-10] MEDS: TOPROL XL 25 MG PO (10:19)
[2024-03-10] MEDS: FLUSH (NSS) 1 FLUSH IV (10:19)
[2024-03-10] MEDS: ASPIR LOW (ENTERIC COATED) 81 MG PO (10:19)
[2024-03-10] MEDS: MIRALAX PO (10:24)
--- NOTE | 2024-03-10 10:54 | W.PN.VS ---
Addendum entered and electronically signed by Aldair Rodriguez MD 03/10/24 12:37:
Seen and examined with KATELYNN Banuelos earlier today. Agree with findings as noted below. Left below-knee amputation dressing removed. Skin edges well-approximated. No hematoma. Skin flaps pink. Warm. Plan/as discussed and noted below.
Original Note:
Today's Communication / Plan
-
Patient seen evaluated bedside with Dr. Aldair Rodriguez, below plan reviewed with attending
Assessment/Plan
-
Assessment: 73-year-old male POD #30left BKA
Continue with PT/OT
Continue p.o. pain medication
Disposition planning, consultation to [facility] pending
Possible discharge later this afternoon pending availability at rehab
Currently BKA site at left lower extremity open to air will return to replace Sarath bandage with mild compression
Subjective Data
-
Date of Service: March 10, 2024
Patient seen and examined at bedside, offers no complaints. Reports adequate postoperative pain management.
Objective Data
-
Vital Signs
Temp Pulse Resp BP Pulse Ox
98.1 F 82 20 146/69 97
03/10/24 07:55 03/10/24 07:55 03/10/24 07:55 03/10/24 07:55 03/10/24 07:55
Intake and Output
03/09/24 03/10/24 03/11/24
06:59 06:59 06:59
Intake Total 1140 / 1140 1080 / 1080
Output Total 1350 / 1350 800 / 800
Balance -210 / -210 280 / 280
Intake:
Oral fluids 1140 / 1140 1080 / 1080
Output:
Urine, Mons[place] 350 / 350
Urine, Voided 1000 / 1000 800 / 800
Other:
Number of approximated MODERATE 1
amounts of urine
How many times incontinent 2 3
SATURATED amount urine
Lab Results
03/10/24 07:35
03/10/24 07:35
Calcium 9.2 mg/dl (8.4-10.2) 03/10/24 07:35
Physical Exam
-
Resting bed comfortably
No dyspnea
ABD rotund and soft
Left BKA dressing changed, sandeep well-approximated and CDI, no evidence of hematoma
[2024-03-10 11:42] LABS: Glucose - Point of Care 185 mg/dl (70-99)
[2024-03-10] MEDS: ROXICODONE 5 MG PO ×2 (13:19→17:47)
--- NOTE | 2024-03-10 15:34 | W.DS.TRANS ---
Addendum entered and electronically signed by VICKEY Lange 03/10/24 15:38:
Additionally added:
Gabapentin 100 mg p.o. 3 times daily
Original Note:
DC Summary - Bag[facility] Porter
-
Discharge Instructions:
Discharge Diagnosis/Procedures Left below-knee amputation
Diet As tolerated,Low Cholesterol
Activity No strenuous activity,With assistance
Driving Restrictions No driving
Bathing Restrictions OK to Shower
Wound Care Can leave stable sites open to air
intermittently. However, would leave Sarath wrap
with mild compression and to patient comfort
around stump daily to reduce swelling, do not
allow soiled/wet Sarath wrap to stay on surgical
site, change as needed id becomes soiled.
Instructions:
Stand-Alone Forms: DC Instr - Vascular OR
Changes to Home Medications: Yes
Discharge Medications:
DC Medications w/original date entered in [facility]
atorvastatin 40 mg tablet 40 mg PO DAILY High cholesterol 03/12/23
empagliflozin 25 mg tablet (Jardiance) 25 mg PO DAILY Diabetes 03/12/23
lisinopril 20 mg tablet 20 mg PO DAILY Blood pressure 03/12/23
metoprolol succinate 25 mg tablet,extended release 24 hr 25 mg PO DAILY Blood pressure 03/12/23
sitagliptin phosphate 100 mg tablet (Januvia) 100 mg PO DAILY Diabetes 03/12/23
glipizide 5 mg tablet 5 mg PO BID diabetes 09/09/23
aspirin 81 mg tablet,delayed release 81 mg PO DAILY Blood Clot Prevention/Tx 01/25/24
isosorbide mononitrate 30 mg tablet,extended release 24 hr 30 mg PO DAILY Heart Disease/Condition 01/25/24
metformin 1,000 mg tablet 1,000 mg PO BID diabetes 01/25/24
oxycodone-acetaminophen 10 mg-650 mg tablet 1 tab PO Q8HPRN PRN severe left foot pain 03/07/24
sennosides 8.6 mg-docusate sodium 50 mg tablet (Senokot-S) 1 tab-cap PO HS 03/07/24
polyethylene glycol 3350 17 gram oral powder packet (HealthyLax) 17 g PO DAILY 14 days #14 03/10/24
Home Medication Changes
Stopped:
Keflex 500 mg and Xarelto 20 mg
Added:
polyethylene glycol 3350 17 gram oral powder packet (HealthyLax) 17 g PO DAILY 14 days #14 03/10/24
Pending Results: No
--- NOTE | 2024-03-10 16:10 | CM ---
met with patient and .patient is sp left bka,sutures in place,dressings changed.patient indicated he was seen by pmr.called ely andino and left [facility] to return my call. per ely,there is no bed at [facility] until next
tu.there is a bed tomorrow at [facility],patient has already been discharged.i will start insurance authorization. i will text attending with this information and speak with the patient.plan:[facility] [place] tomorrow pending auth.
[2024-03-10 16:34] LABS: Glucose - Point of Care 142 mg/dl (70-99)
[2024-03-10] MEDS: NOVOLOG FLEXPEN-LOW RESISTANCE SC (16:38)
[2024-03-10] MEDS: TYLENOL 650 MG PO (17:47)
[2024-03-10 21:25] LABS: Glucose - Point of Care 137 mg/dl (70-99)
[2024-03-10] MEDS: SENOKOT-S PO (21:54)
[2024-03-11] MEDS: HEPARIN 5000 UNITS SC ×2 (00:31→08:31)
[2024-03-11 03:36] VITALS: BP 167/82
[2024-03-11] MEDS: TYLENOL 650 MG PO ×3 (03:37→17:28)
--- NOTE | 2024-03-11 07:40 | W.PN.VS ---
Addendum entered and electronically signed by Aldair Rodriguez MD 03/11/24 11:18:
Hyponatremia likely secondary to having received IV fluids.
Original Note:
Today's Communication / Plan
-
See plan below for today 03/11/2024.
Assessment/Plan
-
Assessment: 73-year-old male POD #4 left BKA
PT/OT and dispo placement.
-
Total Time Spent with Patient (in minutes): 7
Subjective Data
-
Date of Service: March 11, 2024
Patient without significant complaints today. Left below-knee amputation soreness continues but improved slightly today.
Objective Data
-
Vital Signs
Temp Pulse Resp BP Pulse Ox
97.5 F 83 20 167/82 93
03/11/24 03:36 03/11/24 03:36 03/11/24 03:36 03/11/24 03:36 03/11/24 03:36
Intake and Output
03/10/24 03/11/24 03/12/24
06:59 06:59 06:59
Intake Total 1080 / 1080 870 / 870
Output Total 800 / 800 450 / 450
Balance 280 / 280 420 / 420
Intake:
Oral fluids 1080 / 1080 870 / 870
Output:
Urine, Voided 800 / 800 450 / 450
Other:
Number of approximated MODERATE 1 2
amounts of urine
How many times incontinent 1
MODERATE amount urine
How many times incontinent 3
SATURATED amount urine
Lab Results
03/10/24 07:35
03/10/24 07:35
Calcium 9.2 mg/dl (8.4-10.2) 03/10/24 07:35
Physical Exam
-
Afebrile.
Awake and alert.
Left BKA site remains clean dry and intact (staple line). Skin flaps pink and viable.
[2024-03-11 07:46] LABS: Glucose - Point of Care 188 mg/dl (70-99)
[2024-03-11 07:55] VITALS: BP 132/66
[2024-03-11] MEDS: NOVOLOG FLEXPEN-LOW RESISTANCE 1 UNITS SC (08:29)
[2024-03-11] MEDS: IMDUR (EXTENDED RELEASE) 30 MG PO (08:31)
[2024-03-11] MEDS: ZESTRIL 20 MG PO (08:31)
[2024-03-11] MEDS: JARDIANCE 25 MG PO (08:31)
[2024-03-11] MEDS: JANUVIA 100 MG PO (08:31)
[2024-03-11] MEDS: TOPROL XL 25 MG PO (08:31)
[2024-03-11] MEDS: GLUCOTROL 5 MG PO ×2 (08:31→17:27)
[2024-03-11] MEDS: ASPIR LOW (ENTERIC COATED) 81 MG PO (08:31)
[2024-03-11] MEDS: GLUCOPHAGE 1000 MG PO ×2 (08:31→17:27)
[2024-03-11] MEDS: NEURONTIN 100 MG PO ×2 (08:32→17:27)
[2024-03-11] MEDS: LIPITOR 40 MG PO (08:32)
[2024-03-11] MEDS: MIRALAX 17 GRAMS PO (08:33)
[2024-03-11 11:34] LABS: Glucose - Point of Care 124 mg/dl (70-99)
[2024-03-11] MEDS: NOVOLOG FLEXPEN-LOW RESISTANCE SC ×2 (11:35→17:28)
[2024-03-11 11:55] VITALS: BP 108/54
--- NOTE | 2024-03-11 14:59 | CM ---
patient stable for dc to acute rehab.[facility] [place] [facility] patient.spoke with and patient who is in agreement with [facility].called [facility] and spoke with niall brody.reference # [id number] starting 03/11,NRD 03/18 [facility] to fax
clinicals to [phone].
phone number to call report is [phone] and fax is [phone].needs ambulance transport to facility.patient signed imm letter.called ely to give her auth info.TT sent to dr lorenzo.
[2024-03-11 15:55] VITALS: BP 113/46
[2024-03-11 16:58] LABS: Glucose - Point of Care 131 mg/dl (70-99)
[2024-03-11] MEDS: HEPARIN SC (17:27)
--- NOTE | 2024-03-23 12:17 | W.DCSUMMARY ---
Discharge Summary
Discharge Data
Date of Admission: 03/07/24
Date of Discharge: 03/11/24
-
Pending Results: No
Hospital Course
Attending: Michael
Consultants: rehab
Allergies: NKDA
Procedure with date: 03/07/2024: Left below the knee amputation
History of present illness: The patient is an 73-year-old male with multiple medical conditions including: Hypertension, CABG x 3, abdominal aortic repair 2019, diabetes, rotator cuff repair, sinus surgery 2013, left SGA to JUVENTINO bypass 2022. Patient
presented on 03/07/2024 for scheduled procedure with Dr. Rodriguez. Patient presented at baseline health with no reports of recent illness or trauma.
Hospital Course: Briefly, the patient underwent scheduled amputation without complications, and recovered in PACU. Following recovery phase one and two patient was transferred to the floor for continued monitoring. POD #1 (03/08/2024) Patient doing
well overall, reports adequate pain management and tolerating PO diet. Surgical site clean, dry, and intact dressing and soft. No evidence of drainage. PT/OT consulted.
Patient able to ambulate without difficulty or incident. Patient stable for discharge to home. POD #2 (03/09/2024) plan to transition to p.o. pain medication, consultation to [facility]. Patient accepted to [facility] on this day. POD
#3(03/10/2024) dressing removed at bedside, suture line well-approximated, sandeep intact. Site redressed. Awaiting on bed availability at rehab. POD 4 (03/11/2024) patient moving around more easily, doing well. Will go to rehab today.
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 All instructions were given to the patient in both written and verbal form and the patient expressed understanding.
Discharge Plan
-
Patient Disposition: Acute Rehab Facility
Discharge Diagnosis/Procedures: Left below-knee amputation
Condition: Good
Diet: As tolerated and Low Cholesterol
Activity: With assistance and No strenuous activity
Driving Restrictions: No driving
Bathing Restrictions: OK to Shower
Wound Care: Can leave stable sites open to air intermittently. However, would leave Sarath wrap with mild compression and to patient comfort around stump daily to reduce swelling, do not allow soiled/wet Sarath wrap to stay on surgical site, change as
needed id becomes soiled.
Stand Alone Forms: DC Instr - Vascular OR
Referrals:
Marvin Alanis DO [Family Provider] -
Rachel Montgomery CRNP [Specified Professional Personl] - 04/05/24 8:45 am
Prescriptions:
New
polyethylene glycol 3350 [HealthyLax] 17 gram Powder In Packet
17 g PO DAILY 14 Days Qty: 14 0RF
gabapentin 100 mg Capsule
100 mg PO TID Qty: 200 0RF
Continued
atorvastatin 40 mg Tablet
40 mg PO DAILY
lisinopril 20 mg Tablet
20 mg PO DAILY
Hold Instructions: Resume on 05/30/23. Resume only after discussing with your primary care provider
metoprolol succinate 25 mg Tablet Extended Release 24 Hr
25 mg PO DAILY
Januvia 100 mg Tablet
100 mg PO DAILY
Jardiance 25 mg Tablet
25 mg PO DAILY
glipizide 5 mg Tablet
5 mg PO BID
isosorbide mononitrate 30 mg Tablet Extended Release 24 Hr
30 mg PO DAILY
aspirin 81 mg Tablet,Delayed Release (Dr/Ec)
81 mg PO DAILY
metformin 1,000 mg Tablet
1,000 mg PO BID
sennosides-docusate sodium [Senokot-S] 8.6-50 mg Tablet
1 tab-cap PO HS
oxycodone-acetaminophen 10-650 mg Tablet
1 tab PO Q8HPRN PRN (Reason: severe left foot pain)
Discontinued
Xarelto 20 mg Tablet
20 mg PO HS
cephalexin 500 mg Tablet
500 mg PO TID
Discharge Orders:
Discharge Patient (As Directed); Ordered 03/10/24
Ordered By: Nichole Banuelos
Discharge Date and Time
Discharge Date/Time: 03/11/24 18:57
Print Language: JAPANESE
== END 2024-03-11 18:57 | DRG 240 ==
LOC: 4 EAST ACU 09:56
PROVIDERS: Nurse Practitioner; Nurse Practitioner Acute Care; ADMITTING PHYSICIAN Surgery Vascular Surgery; CONSULT PHYSICIAN Physical Medicine & Rehabilitation; FAMILY PHYSICIAN Family Medicine
PROC: 0Y6J0Z2 Detachment at Left Lower Leg, Mid, Open Approach (ICD-10-PCS; 2024-03-07)
DX: E11.52 Type 2 diabetes mellitus with diabetic peripheral angiopathy with gangrene (principal); E87.1 Hypo-osmolality and hyponatremia; I70.262 Atherosclerosis of native arteries of extremities with gangrene, left leg; I25.10 Atherosclerotic heart disease of native coronary artery without angina pectoris; M10.9 Gout, unspecified; I10 Essential (primary) hypertension; E78.5 Hyperlipidemia, unspecified; D64.9 Anemia, unspecified; I71.40 Abdominal aortic aneurysm, without rupture, unspecified; Z66 Do not resuscitate; Z79.82 Long term (current) use of aspirin; Z79.84 Long term (current) use of oral hypoglycemic drugs; Z79.899 Other long term (current) drug therapy; Z87.891 Personal history of nicotine dependence; Z95.1 Presence of aortocoronary bypass graft
CPT/HCPCS: 88307; 88311; 27880; 80048; 82962; 85027; 85610; 85730; 86850; 86900; 86901; 93005; 97163; 97167; 97530; 97535

== ENCOUNTER → 2024-11-21 15:01 | Outpatient (REF) | payer OTHER, SELFPAY | LOC: RAD 15:01 | PROVIDERS: ATTENDING PHYSICIAN Surgery Vascular Surgery; FAMILY PHYSICIAN Family Medicine | DX: Z89.512 Acquired absence of left leg below knee (principal); I73.9 Peripheral vascular disease, unspecified | CPT/HCPCS: 93922; 93925 ==

== ENCOUNTER → 2025-06-02 12:38 | Outpatient (REF) | payer OTHER, SELFPAY | LOC: RAD 12:38 | PROVIDERS: ATTENDING PHYSICIAN Surgery Vascular Surgery; FAMILY PHYSICIAN Family Medicine | DX: Z89.512 Acquired absence of left leg below knee (principal); I73.9 Peripheral vascular disease, unspecified; I71.43 Infrarenal abdominal aortic aneurysm, without rupture | CPT/HCPCS: 76770; 93922; 93925 ==

== ENCOUNTER 2025-10-25 06:31 | Day surgery (SDC) | payer OTHER, SELFPAY ==
[2025-10-17 13:04] VITALS: BMI 27.8
[2025-10-25] VITALS (12 sets, daily range): BP systolic 114–142; BP diastolic 57–74; BMI 27.8
[2025-10-25 11:36] LABS: Glucose - Point of Care 107 mg/dl (70-99)
[2025-10-25] MEDS: NORMOSOL-R/PLASMALYTE-A 1000 IV (11:39)
[2025-10-25 13:56] LABS: Glucose - Point of Care 68 mg/dl (70-99)
[2025-10-25 14:16] LABS: Glucose - Point of Care 75 mg/dl (70-99)
--- NOTE | 2025-10-25 15:30 | PTCARENOTE ---
Received pt from PACU via bed. Pt AAOX3. Pox: 95% RA. IVFs infusing without difficulty. CBI clear. Call felix within reach. Plan of care ongoing.
[2025-10-25 16:21] LABS: Glucose - Point of Care 138 mg/dl (70-99)
[2025-10-25] MEDS: GLUCOPHAGE 1000 MG PO (16:25)
[2025-10-25] MEDS: TYLENOL 1000 MG PO (19:40)
[2025-10-25 21:27] LABS: Glucose - Point of Care 120 mg/dl (70-99)
[2025-10-26 03:08] VITALS: BP 115/64
[2025-10-26 06:00] VITALS: BMI 26.3
[2025-10-26 07:35] LABS: Glucose - Point of Care 96 mg/dl (70-99)
[2025-10-26 07:50] VITALS: BP 125/67
[2025-10-26] MEDS: GLUCOPHAGE 1000 MG PO (08:59)
[2025-10-26] MEDS: LIPITOR 60 MG PO (08:59)
[2025-10-26] MEDS: IMDUR (EXTENDED RELEASE) 30 MG PO (08:59)
[2025-10-26] MEDS: TOPROL XL 25 MG PO (08:59)
[2025-10-26] MEDS: TYLENOL 1000 MG PO (08:59)
[2025-10-26] MEDS: ZOLOFT 50 MG PO (08:59)
[2025-10-26] MEDS: ASPIR LOW (ENTERIC COATED) 81 MG PO (08:59)
[2025-10-26] MEDS: FARXIGA 10 MG PO (08:59)
[2025-10-26] MEDS: ZESTRIL 20 MG PO (09:00)
[2025-10-26] MEDS: PROSCAR 5 MG PO (09:00)
--- NOTE | 2025-10-26 09:56 | CM ---
Patient was admitted for TURP, per patient he lives with spouse in a one story home, with one step to enter, patient is independent with adl's and ambulation, Patient would benefit from PT?OIT evaluationsto assist with discharge planning.
PCP: [facility]
Pharmacy; [facility]
Plan; Home with spouse.
[2025-10-26 11:40] VITALS: BP 115/58
--- NOTE | 2025-10-26 12:20 | W.PN.URO.CBU ---
Today's Communication / Plan
-
d/c Monson
home after voiding trial
Assessment / Plan
-
stable
improving hematuria
Diagnosis
-
Date of Service: October 26, 2025
-
Patient Diagnosis: BPH with Urinary Dysfunction, s/p TURP
Post Op Day: 1
Subjective
-
eager to go home
no pain
Objective
-
Vital Signs
Temp Pulse Resp BP Pulse Ox
97.6 F 82 16 125/67 97
10/26/25 07:50 10/26/25 08:59 10/26/25 07:50 10/26/25 08:59 10/26/25 07:50
Intake and Output
10/25/25 10/26/25 10/27/25
06:59 06:59 06:59
Output Total 2199 / 2199
Balance -2199 / -2199
Output:
True Urine Output from CBI 2199
Physical Exam
-
General - well developed, well nourished, no acute distress
Chest - clear bilaterally
Abdomen - soft, non-tender, positive bowel sounds, no CVAT, no incisional pain or distention
Genitalia - pale urine with CBI
[2025-10-26 12:21] LABS: Glucose - Point of Care 82 mg/dl (70-99)
[2025-10-26 15:57] VITALS: BP 128/61
== END 2025-10-26 16:35 | disposition home or self-care (01) ==
LOC: SDS 06:31
PROVIDERS: ATTENDING PHYSICIAN Specialist
DX: N40.1 Benign prostatic hyperplasia with lower urinary tract symptoms (principal); N41.8 Other inflammatory diseases of prostate; R33.8 Other retention of urine
CPT/HCPCS: 52601; 36415; 82962; 87077; 87086; 87186; 88305; 93005